=== PATIENT | female | born 1940 | race African-American/Black ===

== ENCOUNTER → 2016-09-22 | Outpatient (CLI) | payer MEDICARE, MEDICAID ==
[~2016-09-22] MED LIST: AMLODIPINE BESY10 MG ORAL; ASPIRIN325 MG PO; ATORVASTATIN CA80 MG PO; BYSTOLIC 10MG10 MG ORAL; CHLORTHALIDONE25 MG ORAL; DIOVAN160 MG PO; DIOVAN320 MG ORAL; KLONOPIN1 MG PO; LIDODERM700 M1 TP; LIPITOR80 MG ORAL; LISINOPRIL20 MG ORAL; METOPROLOL TAR100 MG ORAL; NEURONTIN300 MG PO; NITROQUICK0.4 MG SL; NORVASC5 MG PO; PERCOCET 10-321 EAC1 PO; TRAZODONE HCL100 MG ORAL; VICODIN ES 7.51 EACH ORAL; ZANTAC150 MG PO
--- NOTE | 2016-09-27 08:04 | Diagnostic Imaging Report ---
Indication: MASS Technique: Craniocaudal, mediolateral oblique, straight mediolateral views of the left breast. Focused ultrasound left breast Comparison: 03/19/2016, 03/03/2016, 12/13/2013 Findings: The posterior left breast asymmetry described on prior mammographic images at about 5:00 appears similar on the craniocaudal view, less conspicuous on the oblique view. Focused ultrasound of the left breast again demonstrates a lobulated lesion measuring approximately 5 cm long axis dimension, and corresponding in size and appearance to the prior study. Immediately adjacent to it is a 3 mm cyst which is not clearly evident previously but appears cystic, does not show any mammographic correlate. Impression: Left breast lesion described previously appears similar on mammographic imaging. Overall appears similar on sonographic imaging as well, although there is a small benign-appearing cyst next to it which was not apparent previously. Findings are still deemed probably benign, and short interval six-month mammography and sonography is recommended. At that time, patient will be due for bilateral screening mammography as well BI-RADS category 3-probably benign
== END | disposition home or self-care (01) ==
LOC: MAMMO 08:43
DX: R92.8 Other abnormal and inconclusive findings on diagnostic imaging of breast (principal); N63 Unspecified lump in breast

== ENCOUNTER 2017-05-10 03:25 | Emergency (ER) | payer OTHER, MEDICARE, MEDICAID ==
[~2017-05-10] VITALS: Ht 154.9 cm; Wt 79.4 kg
[2017-05-10 03:38] VITALS: BP 136/77
[2017-05-10] MEDS ORDERED: CRESTOR20 MG ORAL (03:45)
[2017-05-10] MEDS ORDERED: TRAMADOL HCL50 MG ORAL (03:45)
[2017-05-10] MEDS ORDERED: Sodium Chloride 500ML 500 ML IV ONE (03:51)
--- NOTE | 2017-05-10 03:53 | Emergency Room Report ---
History of Present Illness General Chief Complaint: Constipation Source: Patient Present Illness HPI Patient presents with right flank and right back pain Patient reports that she has been constipated She was seen by her physician on Tuesday She had taken some antibiotics for possible bladder infection Goes medications were started on her own Denies any dysuria however Denies any chest pain or shortness of breath Patient again reports sensation of constipation Denies any vomiting However as the pain persisted in the right lower back and flank area and some lower abdominal region she presents for further eval Allergies: Coded Allergies: No Known Allergies (Verified Allergy, Mild, 10/06/10) Patient History Past Medical History: see triage record Pertinent Family History: none Reviewed Nursing Documentation: PMH: Agreed, PSxH: Agreed Nursing Documentation-PMH Past Medical History: No History, Except For Hx Cardiac Problems: Yes - angina, palpitations Hx Hypertension: Yes Hx Asthma: No Hx COPD: No Hx Cancer: No Hx Gastrointestinal Problems: No Hx Neurological Problems: No Hx Headaches: Yes Review of Systems All Other Systems: negative except mentioned in HPI Physical Exam Vital Signs Date Time Temp Pulse Resp B/P (MAP) Pulse Ox O2 Delivery O2 Flow Rate FiO2 05/10/17 03:29 98.1 65 19 136/77 97 Room Air Sp02 EP Interpretation: reviewed, normal General Appearance: well appearing, no apparent distress Head: normocephalic, atraumatic Eyes: bilateral eye PERRL, bilateral eye EOMI ENT: hearing grossly normal, normal pharynx, TMs + canals normal, uvula midline Neck: full range of motion, supple, no meningismus, no bony tend Respiratory: lungs clear, normal breath sounds, no rhonchi, no respiratory distress, no retraction, no accessory muscle use Cardiovascular #1: normal peripheral pulses, regular rate, rhythm, no edema, no gallop, no JVD, no murmur Gastrointestinal: normal bowel sounds, non tender, soft, no mass, no organomegaly, non-distended, no guarding, no hernia, no pulsatile mass, no rebound Genitourinary: no CVA tenderness Musculoskeletal: other - Patient has a cane, does have palpation discomfort on the right posterior superior iliac crest Neurologic: oriented x3, responsive, 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, motor strength/ tone normal, sensory intact Psychiatric: mood/affect normal Skin: normal color, no rash, warm/dry, palpation normal Lymphatic: normal inspection, no adenopathy Medical Decision Making Diagnostic Impression: Primary Impression: Abdominal pain Additional Impression: Ovarian cyst ER Course With the history exam and presentation, multiple differentials considered, including but not limited to appendicitis, gastritis, cholecystitis, diverticulitis Patient's CAT scan imaging does reveal a right-sided adnexal mass likely ovarian They report that is larger than previous Patient's primary physician is notified about the finding this will require close outpatient followup Other blood work and urine are otherwise appropriate patient has done better at this time stable for close outpatient followup Labs Test 05/10/17 04:00 05/10/17 04:42 White Blood Count 5.5 K/UL (4.8-10.8) Red Blood Count 3.76 M/UL (4.20-5.40) Hemoglobin 13.3 G/DL (12.0-16.0) Hematocrit 35.2 % (37.0-47.0) Mean Corpuscular Volume 94 FL (80-99) Mean Corpuscular Hemoglobin 35.4 PG (27.0-31.0) Mean Corpuscular Hemoglobin Concent 37.8 G/DL (32.0-36.0) Red Cell Distribution Width 13.4 % (11.6-14.8) Platelet Count 267 K/UL (150-450) Mean Platelet Volume 7.8 FL (6.5-10.1) Neutrophils (%) (Auto) 48.4 % (45.0-75.0) Lymphocytes (%) (Auto) 36.2 % (20.0-45.0) Monocytes (%) (Auto) 9.4 % (1.0-10.0) Eosinophils (%) (Auto) 4.3 % (0.0-3.0) Basophils (%) (Auto) 1.7 % (0.0-2.0) Sodium Level 141 MMOL/L (136-145) Potassium Level 3.9 MMOL/L (3.5-5.1) Chloride Level 108 MMOL/L (98-107) Carbon Dioxide Level 25 MMOL/L (21-32) Anion Gap 8 mmol/L (5-15) Blood Urea Nitrogen 11 mg/dL (7-18) Creatinine 1.0 MG/DL (0.55-1.30) Estimat Glomerular Filtration Rate mL/min (>60) Glucose Level 110 MG/DL (74-106) Calcium Level 9.1 MG/DL (8.5-10.1) Total Bilirubin 0.9 MG/DL (0.2-1.0) Aspartate Amino Transf (AST/SGOT) 21 U/L (15-37) Alanine Aminotransferase (ALT/SGPT) 16 U/L (12-78) Alkaline Phosphatase 52 U/L (46-116) Total Protein 7.5 G/DL (6.4-8.2) Albumin 3.7 G/DL (3.4-5.0) Globulin 3.8 g/dL Albumin/Globulin Ratio 1.0 (1.0-2.7) Lipase 355 U/L (73-393) Urine Color Pale yellow Urine Appearance Clear Urine pH 7 (4.5-8.0) Urine Specific [place] 1.010 (1.005-1.035) Urine Protein Negative (NEGATIVE) Urine Glucose (UA) Negative (NEGATIVE) Urine Ketones Negative (NEGATIVE) Urine Occult Blood Negative (NEGATIVE) Urine Nitrite Negative (NEGATIVE) Urine Bilirubin Negative (NEGATIVE) Urine Urobilinogen Normal MG/DL (0.0-1.0) Urine Leukocyte Esterase 1+ (NEGATIVE) Urine RBC 0-2 /HPF (0 - 2) Urine WBC 2-4 /HPF (0 - 2) Urine Squamous Epithelial Cells Few /LPF (NONE/OCC) Urine Bacteria None /HPF (NONE) CT/MRI/US Diagnostic Results CT/MRI/US Diagnostic Results : Impression CT abdomen pelvisIMPRESSION: 1. No definite acute abnormality identified to explain unspecified abdominal pain, allowing for lack of contrast. 2. Oval, well-circumscribed right adnexal/ovarian cyst, measuring up to 5.5 cm, significantly larger than on the prior exams. 3. No additional significant interval change. INCIDENTAL: Colonic diverticulosis; cholelithiasis; evidence of prior granulomatous infection; small hiatal hernia; small right adrenal adenoma; stable mild right renal pyelocaliectasis; moderate atherosclerosis; status post hysterectomy and probable appendectomy; small right renal cyst. Last Vital Signs Date Time Temp Pulse Resp B/P (MAP) Pulse Ox O2 Delivery O2 Flow Rate FiO2 05/10/17 03:38 98.1 65 19 136/77 97 Room Air Status: improved Disposition: HOME, SELF-CARE Condition: Improved Scripts Acetaminophen (Tylenol) 325 Mg Tablet 650 MG ORAL Q8HR Y for Prn Pain/Headache/Temp > 101, #20 TAB 0 Refills Prov: ANDREY LAY D.O. 05/10/17 Docusate Sodium* (COLACE*) 100 Mg Capsule 100 MG ORAL THREE TIMES A DAY for 10 Days, CAP Prov: ANDREY LAY D.O. 05/10/17 Referrals: JANEL WALDRON (PCP) Additional Instructions: Patient is provided with the discharge instructions notified to follow up with primary doctor in the next 2-3 days otherwise return to the er with any worsening symptoms. Please note that this report is being documented using [employer] technology. This can lead to erroneous entry secondary to incorrect interpretation by the dictating instrument. ANDREY LAY D.O. May 10, 2017 03:53
[2017-05-10] MEDS ORDERED: Morphine Sulfate 4mg/ml Inj IVP ONE (04:00)
[2017-05-10 04:28] LABS: BASOPHILS % (AUTO) 1.7 % (0.0-2.0); EOSINOPHILS % (AUTO) 4.3 % (0.0-3.0); LYMPHOCYTES % (AUTO) 36.2 % (20.0-45.0); MEAN CORPUSCULAR HEMOGLOBIN 35.4 PG (27.0-31.0); MEAN CORPUSCULAR HGB CONC 37.8 G/DL (32.0-36.0); MEAN CORPUSCULAR VOLUME 94 FL (80-99); MEAN PLATELET VOLUME 7.8 FL (6.5-10.1); MONOCYTES % (AUTO) 9.4 % (1.0-10.0); NEUTROPHILS % (AUTO) 48.4 % (45.0-75.0); PLATELET COUNT 267 K/UL (150-450); RED BLOOD COUNT 3.76 M/UL (4.20-5.40); RED CELL DISTRIBUTION WIDTH 13.4 % (11.6-14.8); WHITE BLOOD COUNT 5.5 K/UL (4.8-10.8)
[2017-05-10 04:35] LABS: ANION GAP 8 mmol/L (5-15); CALCIUM 9.1 MG/DL (8.5-10.1); CARBON DIOXIDE 25 MMOL/L (21-32); CHLORIDE 108 MMOL/L (98-107); POTASSIUM 3.9 MMOL/L (3.5-5.1); SODIUM 141 MMOL/L (136-145)
[2017-05-10 04:38] LABS: ALANINE AMINOTRANSFERASE 16 U/L (12-78); ASPARTATE AMINO TRANSFERASE 21 U/L (15-37); LIPASE 355 U/L (73-393); TOTAL PROTEIN 7.5 G/DL (6.4-8.2)
[2017-05-10 05:01] LABS: APPEARANCE,URINE CLEAR; KETONES,URINE NEGATIVE (NEGATIVE); LEUKOCYTE ESTERASE ,URINE 1+ (NEGATIVE); NITRITE,URINE NEGATIVE (NEGATIVE); PH,URINE 7 (4.5-8.0); PROTEIN,URINE NEGATIVE (NEGATIVE); UROBILINOGEN,URINE NORMAL MG/DL (0.0-1.0)
[2017-05-10 05:20] LABS: RBC,URINE 0-2 /HPF (0 - 2); SQUAMOUS EPITHELIAL CELL,UR FEW /LPF (NONE/OCC)
[2017-05-10] MEDS ORDERED: TYLENOL325 MG ORAL (05:28)
[2017-05-10] MEDS ORDERED: COLACE100 MG ORAL (05:28)
[2017-05-10 05:38] VITALS: BP 139/79
[2017-05-10 06:13] VITALS: BP 139/81
--- NOTE | 2017-05-10 09:06 | Diagnostic Imaging Report ---
Indication: Abdominal pain Technique: Continuous helical transaxial imaging of the abdomen and pelvis was obtained from the lung bases to the pubic symphysis. No intravenous contrast was administered. Coronal 2-D reformats were also obtained. Automatic Exposure Control was utilized. Total Dose length Product (DLP): [address] Dose Index Volume (CTDIvol): 0.15, 17.93 mGy Comparison: none Findings: The lung bases are essentially clear. There is a small hiatal hernia. Calcified granulomata noted within the liver and spleen. Gallstones are present. Arterial vascular calcifications are present. Diverticula noted throughout the colon without definite evidence of diverticulitis. Small multiple hernia is present containing fat. There is a right-sided cystic focus only ovarian measuring 5 cm. This is larger compared to prior study. There is a small right adrenal low-density lesion consistent with an adenoma. Probable appendectomy noted. Uterus is absent. There is a small right renal cyst. Impression: No acute findings appreciated. 5 cm right adnexal cyst probably ovarian in nature. This has enlarged slightly since the last exam. Multiple other chronic findings as described above. [facility] has communicated the preliminary results to the Emergency Department. Their findings are largely concordant with this report. The CT scanner at [facility] is accredited by the [employer] and the scans are performed using dose optimization techniques as appropriate to a performed exam including Automatic Exposure control.
== END 2017-05-10 06:13 | disposition home or self-care (01) ==
LOC: EMR 03:45
DX: R10.9 Unspecified abdominal pain (principal); K59.00 Constipation, unspecified; I10 Essential (primary) hypertension; N83.201 Unspecified ovarian cyst, right side
CPT/HCPCS: 36415; 74176; 80053; 81003; 83690; 85025; 96361; 96374; 96375; 99284; J2270; J2405; J7040

== ENCOUNTER 2017-07-05 04:56 | Emergency (ER) | payer OTHER, MEDICAID ==
[~2017-07-05] VITALS: Ht 154.9 cm; Wt 79.4 kg
[~2017-07-05 04:56] MED LIST changes: +COLACE100 MG ORAL; +CRESTOR20 MG ORAL; +TRAMADOL HCL50 MG ORAL; +TYLENOL325 MG ORAL
[2017-07-05] MEDS ORDERED: NORVASC2.5 MG ORAL (05:15)
[2017-07-05] MEDS ORDERED: LOPRESSOR HCT1 EAC3 ORAL (05:15)
[2017-07-05] MEDS ORDERED: CIPROFLOXACIN750 MG ORAL (05:15)
--- NOTE | 2017-07-05 05:41 | Emergency Room Report ---
History of Present Illness General Chief Complaint: Lower Extremity Injury Source: Patient Present Illness HPI Patient presents with complaints of right-sided for pain Patient reports tripping fall about 3 days ago Pain is localized to the lateral leg/foot pain is worse with walking As the swelling persisted and the pain persisted patient was concerned and comes to the ER denies any cuts or laceration denies any pain to the knee Pain is 4/10 Allergies: Coded Allergies: No Known Allergies (Verified Allergy, Mild, 10/06/10) Patient History Past Medical History: see triage record Pertinent Family History: none Last Menstrual Period: na Reviewed Nursing Documentation: PMH: Agreed, PSxH: Agreed Nursing Documentation-PMH Hx Cardiac Problems: Yes - angina, palpitations Hx Hypertension: Yes Hx Asthma: No Hx COPD: No Hx Cancer: No Hx Gastrointestinal Problems: No Hx Neurological Problems: No Hx Headaches: Yes Review of Systems All Other Systems: negative except mentioned in HPI Physical Exam Vital Signs Date Time Temp Pulse Resp B/P (MAP) Pulse Ox O2 Delivery O2 Flow Rate FiO2 07/05/17 04:58 98.4 96 18 162/88 97 Room Air Sp02 EP Interpretation: reviewed, normal General Appearance: well appearing, no apparent distress Head: normocephalic, atraumatic Eyes: bilateral eye PERRL, bilateral eye EOMI ENT: normal pharynx, no angioedema Neck: full range of motion, supple Respiratory: lungs clear, normal breath sounds Cardiovascular #1: regular rate, rhythm Gastrointestinal: non tender Musculoskeletal: swelling - To the right foot Neurologic: alert, oriented x3 Skin: other - as above Lymphatic: no adenopathy Procedures Splinting Splinting : Consent: Verbal Location: right foot Pre-Made Type: Hand-Made Type: plaster Splint: poserior short Pre-Proc Neuro Vasc Exam: normal Post-Proc Neuro Vasc Exam: normal Patient Tolerated: Well Complications: None Medical Decision Making Diagnostic Impression: Primary Impression: foot fracture ER Course X-ray region reveals fifth metatarsal fracture Patient had a splint applied Referral to orthopedics as initiated patient will have discussion with primary physician as well for further outpatient care Other X-Ray Diagnostic Results Other X-Ray Diagnostic Results #1: X-Ray ordered: right foot # of Views/Limited Vs Complete: 3 View Indication: Pain EP Interpretation: Yes Interpretation: no soft tissue swelling, other - Fracture of the proximal fifth metatarsal, no other foreign body Impression: Other - acute fracture fifth metatarsal Electronically Signed by: Ghazala Lay DO Other X-Ray Diagnostic Results #2: X-Ray ordered: right ankle # of Views/Limited Vs Complete: 3 View Indication: Pain EP Interpretation: Yes Interpretation: no dislocation, no soft tissue swelling, other - Acute fracture fifth metatarsal better seen on the foot x-rays Impression: Other - acute fracture,5th metatarsal Electronically Signed by: Ghazala Lay DO Last Vital Signs Date Time Temp Pulse Resp B/P (MAP) Pulse Ox O2 Delivery O2 Flow Rate FiO2 07/05/17 04:58 98.4 96 18 162/88 97 Room Air Status: improved Disposition: HOME, SELF-CARE Condition: Improved Referrals: JANEL WALDRON (PCP) CAROL CORTEZ Patient Instructions: Metatarsal Fracture Additional Instructions: Patient is provided with the discharge instructions notified to follow up with primary doctor in the next 2-3 days otherwise return to the er with any worsening symptoms. Please note that this report is being documented using [employer] technology. This can lead to erroneous entry secondary to incorrect interpretation by the dictating instrument. GHAZALA LAY D.O. Jul 05, 2017 05:41
[2017-07-05 05:49] VITALS: BP 162/88
--- NOTE | 2017-07-05 12:25 | Diagnostic Imaging Report ---
Indication: Pain right ankle Comparison: None Findings: 3 views of the right ankle obtained. There is an acute fracture of the base of the fifth metatarsal. Soft tissue swelling noted in the hindfoot and ankle. The bones appear osteopenic. Ankle mortise appears normal. IMPRESSION: Acute fifth metatarsal base fracture
--- NOTE | 2017-07-05 12:26 | Diagnostic Imaging Report ---
Indication: Pain Comparison: None Findings: 3 views of the right foot were obtained. There is acute fracture at the base of the fifth metatarsal. Bones are osteopenic. Soft tissue swelling is noted. Plantar calcaneal spur formation noted. IMPRESSION: Acute fracture base of the fifth metatarsal
== END 2017-07-05 05:49 | disposition home or self-care (01) ==
LOC: EMR 05:15
DX: S92.351A Displaced fracture of fifth metatarsal bone, right foot, initial encounter for closed fracture (principal); I10 Essential (primary) hypertension; W18.30XA Fall on same level, unspecified, initial encounter; Y92.9 Unspecified place or not applicable
CPT/HCPCS: 29515; 99284

== ENCOUNTER 2018-08-05 17:27 | Inpatient (IN) | payer MEDICARE, OTHER ==
[~2018-08-05] VITALS: Ht 154.9 cm; Wt 80.8 kg
[~2018-08-05 17:27] MED LIST changes: +CIPROFLOXACIN750 MG ORAL; +LOPRESSOR HCT1 EAC3 ORAL; +NORVASC2.5 MG ORAL
--- NOTE | 2018-08-05 17:47 | NUR ---
ED Nurse Note: Pt came into the ER w/ complaints of SOB x 3 weeks. Pt is complaining of chest pain 4/10 non radiating while she coughs. A + O x4. Ambulatory. Pt noted to have bilateral pitting edema + 1 on bilateral lower legs. Pt has SOB in between talking. Pt noted to have wheezing.
[2018-08-05 17:49] VITALS: BP 152/69
--- NOTE | 2018-08-05 17:59 | Emergency Room Report ---
History of Present Illness General Chief Complaint: Dyspnea/Respdistress Source: Patient Present Illness HPI Patient presents with dyspnea on exertion. This started just before coming in. Apparently she was walking back from the bathroom and her nephew who her with shortness of breath. She denies chest pain. She's had a scratchy throat for a few days and 2 days ago was having a cough that didn't produce any phlegm. She also is complaining about swelling in her legs without any pain in her calfs. She she's felt chills but didn't document any fevers. She denies any nausea vomiting diarrhea dysuria. She's had some loose stool with brown stool. She states she feels her heart is pounding out of her chest. She complains of some constipation. She denies anxiety. She claims to have congestive failure in the past. She is told in the past that her heart was large and then normal size. Allergies: Coded Allergies: No Known Allergies (Verified Allergy, Mild, 10/06/10) Patient History Past Medical History: see triage record Social History: Denies: smoking Social History Narrative Born in [place] Reviewed Nursing Documentation: PMH: Agreed; PSxH: Agreed Nursing Documentation-PMH Past Medical History: No History, Except For Hx Cardiac Problems: Yes - angina, palpitations Hx Hypertension: Yes Hx Asthma: No Hx COPD: No Hx Cancer: No Hx Gastrointestinal Problems: No Hx Neurological Problems: No Hx Headaches: Yes Review of Systems All Other Systems: negative except mentioned in HPI Physical Exam Vital Signs Date Time Temp Pulse Resp B/P (MAP) Pulse Ox O2 Delivery O2 Flow Rate FiO2 08/05/18 17:43 97.5 108 16 152/69 96 Room Air 08/05/18 17:49 97 Sp02 EP Interpretation: reviewed, normal General Appearance: well appearing, no apparent distress, GCS 15 Head: normocephalic Eyes: bilateral eye normal inspection, bilateral eye PERRL, bilateral eye EOMI ENT: moist mucus membranes Neck: supple Respiratory: lungs clear, normal breath sounds Cardiovascular #1: tachycardia, edema - 1+ pitting bilaterally Cardiovascular #2: 2+ radial (R) Gastrointestinal: normal inspection, normal bowel sounds, non tender, no mass, non-distended Musculoskeletal: back normal, gait/station normal, normal range of motion, no calf tenderness, Aspen's Sign negative Neurologic: alert, oriented x3, grossly normal Psychiatric: mood/affect normal Skin: normal inspection, warm/dry Procedures Critical Care Time Critical Care Time Total Critical Care Time: 45 min bedside evaluation and treatment excludes procedures (EKG). Reason for critical care: NSTEMI with tachycardia, heart failure Possible complications: hypotension, hypertension, AL, shock, arrhythmias, metabolic acidosis, end organ damage, respiratory failure. Interventions: Lasix, nitroglycerin paste, metoprolol, Lovenox, aspirin, repeat evaluations morphine Course: Patient presented with dyspnea and evidence of tachycardia and possible congestive heart failure. EKG without injury. Nitroglycerin paste and Lasix given. Positive troponin. Aspirin, metoprolol given. Patient diuresing. Epigastric pain which may be cardiac equivalent. Morphine administered. Improvement in pain. Discussed with primary physician who requests CT angiogram to exclude pulmonary embolus. Lovenox administered. CT angiogram no pulmonary embolus. Morphine repeated. Vital signs improved and patient is pain -free. Admitted to stepdown unit. Consultations: nursing staff, EMS admitting physician, Performed by: Dr. Torres Tolerated well condition = critical but improved Medical Decision Making Diagnostic Impression: Primary Impression: NSTEMI (non-ST elevated myocardial infarction) Additional Impressions: CHF (congestive heart failure) Qualified Codes: I50.9 - Heart failure, unspecified Bilateral pleural effusion ER Course Patient presents with dyspnea on exertion. Differential includes acute myocardial infarction, congestive heart failure, pulmonary embolus, amongst others. The patient will be evaluated with EKG, chest x-ray and labs. The patient will be treated with nitroglycerin paste. Lasix also given. EKG with sinus tachycardia and PVCs. There is an episode of block. It might be secondary Mobitz 2 versus effusion beats it's not picked up. No acute injury. She is a left bundle-branch block and left axis deviation. Called with + troponin. Aspirin, metoprolol given. Nitrates already given. Improved HR. C/O "heartburn" Morphine given. Pain /10. EKG repeat = NSR 85, non-specific IV conduction delay - looks LBBB, not stemi. LAE. Dr. Vidales requests CTA. Lovenox administered subcutaneously. CTA done. No pulmonary embolus. Patient pain-free. Admit stepdown unit. Discussed with Dr. Vidales. Lovenox ordered. Pain free. Dr. Bianchi contacted for consultation. Laboratory Tests Test 08/05/18 18:00 08/05/18 19:00 White Blood Count 4.4 K/UL (4.8-10.8) L Red Blood Count 4.16 M/UL (4.20-5.40) L Hemoglobin 13.2 G/DL (12.0-16.0) Hematocrit 38.6 % (37.0-47.0) Mean Corpuscular Volume 93 FL (80-99) Mean Corpuscular Hemoglobin 31.6 PG (27.0-31.0) H Mean Corpuscular Hemoglobin Concent 34.1 G/DL (32.0-36.0) Red Cell Distribution Width 13.1 % (11.6-14.8) Platelet Count 190 K/UL (150-450) Mean Platelet Volume 9.4 FL (6.5-10.1) Neutrophils (%) (Auto) 51.3 % (45.0-75.0) Lymphocytes (%) (Auto) 34.1 % (20.0-45.0) Monocytes (%) (Auto) 12.1 % (1.0-10.0) H Eosinophils (%) (Auto) 0.2 % (0.0-3.0) Basophils (%) (Auto) 2.3 % (0.0-2.0) H Prothrombin Time 12.0 SEC (9.30-11.50) H Prothrombin Time INR 1.1 (0.9-1.1) PTT 26 SEC (23-33) Sodium Level 145 MMOL/L (136-145) Potassium Level 3.2 MMOL/L (3.5-5.1) L Chloride Level 106 MMOL/L (98-107) Carbon Dioxide Level 26 MMOL/L (21-32) Anion Gap 13 mmol/L (5-15) Blood Urea Nitrogen 17 mg/dL (7-18) Creatinine 1.2 MG/DL (0.55-1.30) Estimate Glomerular Filtration Rate mL/min (>60) Glucose Level 119 MG/DL (74-106) H Calcium Level 9.0 MG/DL (8.5-10.1) Total Bilirubin 3.4 MG/DL (0.2-1.0) H Direct Bilirubin 0.5 MG/DL (0.0-0.3) H Aspartate Amino Transferase (AST) 33 U/L (15-37) Alanine Aminotransferase (ALT) 34 U/L (12-78) Alkaline Phosphatase 55 U/L (46-116) Total Creatine Kinase 174 U/L (26-308) Troponin I 0.723 ng/mL (0.000-0.056) Pro-B-Type Natriuretic Peptide 8023 pg/mL (0-125) H Total Protein 6.9 G/DL (6.4-8.2) Albumin 3.6 G/DL (3.4-5.0) Globulin 3.3 g/dL Albumin/Globulin Ratio 1.1 (1.0-2.7) Urine Color Pale yellow Urine Appearance Slightly cloudy Urine pH 6 (4.5-8.0) Urine Specific [place] 1.010 (1.005-1.035) Urine Protein 2+ (NEGATIVE) H Urine Glucose (UA) Negative (NEGATIVE) Urine Ketones 1+ (NEGATIVE) H Urine Blood Negative (NEGATIVE) Urine Nitrite Negative (NEGATIVE) Urine Bilirubin Negative (NEGATIVE) Urine Urobilinogen Normal MG/DL (0.0-1.0) Urine Leukocyte Esterase Negative (NEGATIVE) Urine RBC 0 /HPF (0 - 2) Urine WBC 0-2 /HPF (0 - 2) Urine Squamous Epithelial Cells Many /LPF (NONE/OCC) H Urine Bacteria Few /HPF (NONE) Urine Mucus Moderate /LPF (NONE/OCC) H EKG Diagnostic Results Rate: tachycardiac Rhythm: NSR ST Segments: no acute changes - See above reading Rhythm Strip Diag. Results EP Interpretation: yes Rhythm: NSR, other - PVC and possible block rate 106 Chest X-Ray Diagnostic Results Chest X-Ray Diagnostic Results : Chest X-Ray Ordered: Yes # of Views/Limited/Complete: 1 View Indication: Shortness of Breath EP Interpretation: Yes Interpretation: no consolidation, no effusion, no pneumothorax Impression: No acute disease Electronically Signed by: Electronically signed by Mustapha Torres MD CT/MRI/US Diagnostic Results CT/MRI/US Diagnostic Results : Imaging Test Ordered: CT angiogram chest Impression No pulmonary emboli. Bilateral pleural effusions Last Vital Signs Date Time Temp Pulse Resp B/P (MAP) Pulse Ox O2 Delivery O2 Flow Rate FiO2 08/06/18 00:00 98.0 20 138/78 (98) 100 08/06/18 00:00 Room Air 2/17/19 00:00 79 08/05/18 17:49 97 Status: improved Disposition: ADMITTED INPATIENT Condition: Serious Mustapha Torres MD Aug 05, 2018 17:59
[2018-08-05] MEDS ORDERED: Nitroglycerin 2% oint pkt TOPIC ONE (18:00)
--- NOTE | 2018-08-05 18:12 | NUR ---
ED Nurse Note: Xray at the bedside.
[2018-08-05 18:22] LABS: BASOPHILS % (AUTO) 2.3 % (0.0-2.0); EOSINOPHILS % (AUTO) 0.2 % (0.0-3.0); HEMATOCRIT 38.6 % (37.0-47.0); HEMOGLOBIN 13.2 G/DL (12.0-16.0); LYMPHOCYTES % (AUTO) 34.1 % (20.0-45.0); MEAN CORPUSCULAR VOLUME 93 FL (80-99); MONOCYTES % (AUTO) 12.1 % (1.0-10.0); NEUTROPHILS % (AUTO) 51.3 % (45.0-75.0); PLATELET COUNT 190 K/UL (150-450); RED BLOOD COUNT 4.16 M/UL (4.20-5.40); RED CELL DISTRIBUTION WIDTH 13.1 % (11.6-14.8); WHITE BLOOD COUNT 4.4 K/UL (4.8-10.8)
--- NOTE | 2018-08-05 18:26 | Diagnostic Imaging Report ---
EXAM: XR Chest, 1 View CLINICAL HISTORY: DYSPNEA TECHNIQUE: Frontal view of the chest. COMPARISON: 01/31/2016 FINDINGS: Limitations: Patient rotation. Lungs: Nonspecific density in the medial right lung base. Pleural space: Unremarkable. No pneumothorax. Heart: Enlarged cardiomediastinal silhouette. Mediastinum: See above. Bones/joints: No acute osseous abnormality. Vasculature: Tortuosity and/or ectasia of the thoracic aorta. Lymph nodes: Subcentimeter right hilar calcifications, likely calcified lymph nodes. Tubes, lines and devices: Telemetry leads overlie the patient. IMPRESSION: Nonspecific density in the medial right lung base may represent atelectasis, scar, or an infectious or inflammatory process.
[2018-08-05 18:32] LABS: INR 1.1 (0.9-1.1)
[2018-08-05 18:39] LABS: ANION GAP 13 mmol/L (5-15); BLOOD UREA NITROGEN 17 mg/dL (7-18); CARBON DIOXIDE 26 MMOL/L (21-32); CHLORIDE 106 MMOL/L (98-107); CREATININE 1.2 MG/DL (0.55-1.30); POTASSIUM 3.2 MMOL/L (3.5-5.1); SODIUM 145 MMOL/L (136-145)
[2018-08-05 18:51] LABS: ALANINE AMINOTRANSFERASE 34 U/L (12-78); ALBUMIN 3.6 G/DL (3.4-5.0); ALBUMIN/GLOBULIN RATIO 1.1 (1.0-2.7); ALKALINE PHOSPHATASE 55 U/L (46-116); ASPARTATE AMINO TRANSFERASE 33 U/L (15-37); BILIRUBIN,TOTAL 3.4 MG/DL (0.2-1.0); CREATINE KINASE 174 U/L (26-308)
[2018-08-05 18:55] LABS: BILIRUBIN,DIRECT 0.5 MG/DL (0.0-0.3)
--- NOTE | 2018-08-05 19:03 | NUR ---
HAND-OFF: Report given to VALDO Crow.
--- NOTE | 2018-08-05 19:04 | NUR ---
ED Nurse Note: Notified ERMD of Troponin level of 0.723.
[2018-08-05] MEDS ORDERED: Metoprolol 5mg/5ml Inj IVP SCH (19:15)
[2018-08-05 19:28] LABS: APPEARANCE,URINE SLIGHTLY CLOUDY; BILIRUBIN, URINE NEGATIVE (NEGATIVE); COLOR,URINE PALE YELLOW; GLUCOSE, URINE (UA) NEGATIVE (NEGATIVE); KETONES,URINE 1+ (NEGATIVE); LEUKOCYTE ESTERASE ,URINE NEGATIVE (NEGATIVE); NITRITE,URINE NEGATIVE (NEGATIVE); PH,URINE 6 (4.5-8.0); PROTEIN,URINE 2+ (NEGATIVE); UROBILINOGEN,URINE NORMAL MG/DL (0.0-1.0)
[2018-08-05 19:45] VITALS: BP 166/111
--- NOTE | 2018-08-05 21:00 | NUR ---
ER Nurse Note: Pt BP elevated, MD aware, meds given. Repeat BP at 122/82. Denies chest pain and shortness of breath. Will continue to monitor.
[2018-08-05] MEDS ORDERED: Morphine Sulfate 2mg/ml Inj(IV/IM USE ONLY) IVP ONE ×2 (21:30→22:15)
[2018-08-05 22:05] VITALS: BP 148/82
--- NOTE | 2018-08-05 22:07 | NUR ---
ER Nurse Note: Pt calm, cooperative, a&ox4, VSS, no signs of distress. Pt stated 6/10 chest pain, ERMD notifed and meds ordered. Pt tolerated well. Pt on bedrest, bedside commode present. All safety measures met; will continue to montior.
[2018-08-05] MEDS ORDERED: Isovue-370 150ml vial INJ PRN (22:30)
[2018-08-05] MEDS ORDERED: Enoxaparin 80mg Inj SUBQ SCH (23:15)
[2018-08-05] MEDS ORDERED: Enoxaparin 120 mg inj SUBQ SCH (23:15)
[2018-08-05 23:25] VITALS: BP 136/82
--- NOTE | 2018-08-05 23:25 | NUR ---
ER Nurse Note: Report given to Ascencion Page RN in SDU for continuity of care. Pt a&ox4, VSS, no signs of distress.
--- NOTE | 2018-08-05 23:30 | NUR ---
NURSE NOTES: Pt admitted from ER. Given report from VALDO Croona. Pt is awake and alert and forgetful. Applied Tele monitor. No c/o SOB and chest pain at this time. SaO2 100% with RA. IV site intact and no sign of infiltration noted. Unable to verify her home medication at this time because Pt didn't remember her home medication and didn't bring medication list. Pt has 76 dollar money but refused to save hospital safe. Explained benefit and risks. Checked her belongings. Pt has upper and lower denture. Given admission instruction. Placed fall precaution. Will continue to care plan.
[2018-08-06] VITALS: BP 138/78
--- NOTE | 2018-08-06 | NUR ---
NURSE NOTES: Dr. Bianchi visited and assessed Pt and He said he will give order. Notified to him her lab result and unable to verify her home medications at this time.
--- NOTE | 2018-08-06 00:01 | Diagnostic Imaging Report ---
EXAM: CT Angiography Chest With Intravenous Contrast CLINICAL HISTORY: Pulmonary embolus TECHNIQUE: Axial computed tomographic angiography images of the chest with intravenous contrast using pulmonary embolism protocol. CTDI is 0.17, 12. 62, 12.62, 12.62, 63.11, 28.38 mGy and DLP is 999 mGy-cm. One or more of the following dose reduction techniques were used: automated exposure control, adjustment of the mA and/or kV according to patient size, use of iterative reconstruction technique. MIP reconstructed images were created and reviewed. COMPARISON: No relevant prior studies available. FINDINGS: Artifacts: Motion. Pulmonary arteries: No central pulmonary embolus. Aorta: Atherosclerosis of the thoracic aorta. No thoracic aortic aneurysm. Lungs: Unremarkable. No mass. No consolidation. Pleural space: Small bilateral pleural effusions. No pneumothorax. Heart: Unremarkable. No cardiomegaly. No significant pericardial effusion. Bones/joints: Degenerative changes of the spine. No acute osseous abnormality. Soft tissues: Trace intravenous gas in the lower neck and anterior chest wall may be iatrogenic. Lymph nodes: Unremarkable. No enlarged lymph nodes. Liver: Punctate hepatic and splenic calcifications are compatible with the sequela prior granulomatous disease. Nodular hepatic contour. Gallbladder and bile ducts: Cholelithiasis. Adrenals: Nodular bilateral adrenal glands. IMPRESSION: 1. Small bilateral pleural effusions. 2. No central pulmonary embolus.
[2018-08-06] MEDS ORDERED: HydrALAZINE 25mg tab ORAL PRN (01:15)
--- NOTE | 2018-08-06 02:15 | Consultation ---
DATE OF CONSULTATION: 08/05/2018 CONSULTING PHYSICIAN: Mustapha Bianchi M.D. REQUESTING PHYSICIAN: Dany Vidales M.D. REASON FOR CONSULTATION: Elevated troponin level. HISTORY OF PRESENT ILLNESS: This is an 79-year-old female with history of hypertension, who presented to the hospital with shortness of breath on exertion and ankle swelling, some chest tightness as well was noted. She was noted to have these symptoms today by her nephew who brought her into the hospital. She has had a couple of days of scratchy throat, dry cough, and general malaise but has not had any other constitutional symptoms such as fevers, chills, nausea, vomiting, or diarrhea may be some loose stools noted however. She was seen in the emergency room. She was noted to have signs of congestive heart failure and an elevated troponin level prompting hospitalization. The patient was hospitalized here in 2016 and at that time had a myocardial perfusion scan that revealed less than 10% likelihood for flow-limiting coronary disease. She has not had any subsequent hospitalizations. PAST MEDICAL HISTORY: Hypertension. ALLERGIES: None. MEDICATIONS: The patient does not recall. SOCIAL HISTORY: Quit smoking over 30 years ago. No alcohol or substance abuse. FAMILY HISTORY: Noncontributory. REVIEW OF SYSTEMS: A 10-point review of systems performed, all systems otherwise negative. PHYSICAL EXAMINATION: GENERAL: Moderate respiratory distress. She is well developed, well nourished, appearing younger than her age. Afebrile. VITAL SIGNS: Blood pressure 152/69, pulse 108, respiratory rate 16, and room air oxygen saturation 96%. HEENT: Conjunctivae are pink. Oropharynx clear. Jugular venous pressure is slightly elevated. LUNGS: Few rales. CARDIAC: Regular rhythm and rate. Normal S1, paradoxically split S2. A 1/6 systolic murmur at apex. ABDOMEN: Soft and nontender. EXTREMITIES: 1+ edema. LABORATORY DATA: EKG, sinus tachycardia, occasional PVC, intraventricular conduction delay versus incomplete left bundle-branch block. Sodium 145, potassium 3.2, bicarb 26, BUN 17, creatinine 1.2, and glucose 119. Pro-natriuretic peptide 8023. Troponin 0.723. White count 4.4 and hemoglobin 13.2. Chest x-ray, mild pulmonary venous congestion. IMPRESSION: 1. Acute diastolic congestive heart failure. 2. Acute ves-N[place]-hdtjrbfyr myocardial infarction. 3. Hypertensive heart disease. 4. Hypokalemia. PLAN: 1. Cardiac monitoring, serial troponins, IV diuresis, beta-blockade, and angiotensin-converting enzyme inhibitor for blood pressure management. 2. Check lipid panel. 3. Full anticoagulation with Lovenox. 4. Topical nitrates. 5. Check magnesium level following potassium replacement. 6. Further diagnostic studies will follow depending on clinical course. Mustapha Bianchi M.D. DR: ALVARO JOB#: [id number] CC:
[2018-08-06 04:00] VITALS: BP 136/82
[2018-08-06] MEDS: Nitroglycerin 2% oint pkt TOPIC SCH ×3 (06:03→17:11)
--- NOTE | 2018-08-06 07:07 | NUR ---
HAND-OFF: Report given to VALDO Chavis. Pt is resting on the bed and no sign of acute distress noted.
--- NOTE | 2018-08-06 07:22 | NUR ---
NURSE NOTES: Received report from VALDO Cramer. Patient is resting in bed, in stable condition. No s/sx of SOB, breathing is even and unlabored. Denies any presence of pain or discomfort at this time. Bed is in lowest position, brakes engaged. Call light is kept within easy reach. Will continue to monitor patient.
[2018-08-06 08:00] VITALS: BP 145/87
[2018-08-06] MEDS: Metoprolol 25mg tab ORAL SCH ×2 (08:39→20:58)
[2018-08-06] MEDS: Aspirin Baby 81mg ORAL SCH (08:39)
[2018-08-06] MEDS: Enoxaparin 60mg Inj SUBQ SCH ×2 (08:41→20:59)
--- NOTE | 2018-08-06 10:20 | NUR ---
NURSE NOTES: Contacted and informed Dr. Vidales that patient wishes to be a FULL code status. Dr. Vidales agreed. Code status FULL code entered as ordered. Will continue to monitor patient.
[2018-08-06 10:33] LABS: BASOPHILS % (AUTO) 2.7 % (0.0-2.0); EOSINOPHILS % (AUTO) 2.9 % (0.0-3.0); HEMATOCRIT 35.9 % (37.0-47.0); HEMOGLOBIN 12.7 G/DL (12.0-16.0); LYMPHOCYTES % (AUTO) 32.6 % (20.0-45.0); MEAN CORPUSCULAR VOLUME 91 FL (80-99); MONOCYTES % (AUTO) 10.3 % (1.0-10.0); NEUTROPHILS % (AUTO) 51.5 % (45.0-75.0); PLATELET COUNT 178 K/UL (150-450); RED BLOOD COUNT 3.97 M/UL (4.20-5.40); RED CELL DISTRIBUTION WIDTH 13.1 % (11.6-14.8); WHITE BLOOD COUNT 4.1 K/UL (4.8-10.8)
[2018-08-06 11:01] LABS: ALANINE AMINOTRANSFERASE 33 U/L (12-78); ALBUMIN 3.3 G/DL (3.4-5.0); ALBUMIN/GLOBULIN RATIO 1.1 (1.0-2.7); ALKALINE PHOSPHATASE 51 U/L (46-116); ANION GAP 10 mmol/L (5-15); ASPARTATE AMINO TRANSFERASE 30 U/L (15-37); BILIRUBIN,TOTAL 2.7 MG/DL (0.2-1.0); BLOOD UREA NITROGEN 19 mg/dL (7-18); CALCIUM 8.4 MG/DL (8.5-10.1); CARBON DIOXIDE 27 MMOL/L (21-32); CHLORIDE 107 MMOL/L (98-107); CHOLESTEROL 181 MG/DL (< 200); CREATININE 1.2 MG/DL (0.55-1.30); HDL CHOLESTEROL 31 MG/DL (40-60); POTASSIUM 3.6 MMOL/L (3.5-5.1); SODIUM 144 MMOL/L (136-145); TRIGLYCERIDES 77 MG/DL (30-150)
[2018-08-06 11:15] LABS: BILIRUBIN,DIRECT 0.4 MG/DL (0.0-0.3)
[2018-08-06 12:00] VITALS: BP 135/75
--- NOTE | 2018-08-06 12:23 | NUR ---
NURSE NOTES: Contacted and informed Dr. Mccord who is covering for Dr. Bianchi today, that patient's new troponin level today is 0.640, a downward trend from troponin level of 0.723 from yesterday. Patient denies chest pain or shortness of breath at this time, blood pressure is 135/75. Dr. Mccord acknowledged and no new orders given at this time, and informed this nurse that Dr. Bianchi will be in later today. Noted. Will continue to monitor patient.
[2018-08-06 16:00] VITALS: BP 135/78
--- NOTE | 2018-08-06 18:11 | NUR ---
NURSE NOTES: Dr. Bianchi at nurse station, made aware of troponin level of 0.640 and that patient denies chest pain. Dr. Bianchi acknowledged and no new orders given at this time. Will continue to monitor patient.
--- NOTE | 2018-08-06 19:11 | NUR ---
HAND-OFF: Report given to VALDO Cramer.
--- NOTE | 2018-08-06 19:30 | NUR ---
NURSE NOTES: Received Pt is resting on the bed and no sign of acute distress noted. IV site intact and no sign of infiltration noted. No c/o SOB and denied chest pain at this time. Changed position. Placed fall precaution. Will continue to care plan.
[2018-08-06 20:00] VITALS: BP 126/80
--- NOTE | 2018-08-06 20:52 | History & Physical ---
History and Physical History & Physicial [id number] NSTEMI COPD HTN CHF VO hypoxema obesity Denise Dee DO Aug 06, 2018 20:52
[2018-08-06] MEDS ORDERED: Milk of Magnesia 30ml Ud ORAL PRN (21:30)
[2018-08-06] MEDS ORDERED: Enoxaparin 80mg Inj SUBQ SCH (23:00)
--- NOTE | 2018-08-06 23:00 | Progress Note ---
DATE: 08/06/2018 CARDIOLOGY PROGRESS NOTE SUBJECTIVE: The patient feels better. Less shortness of breath. No chest pain. OBJECTIVE: VITAL SIGNS: Blood pressure 135/72, heart rate 66, respiratory rate 20. She is afebrile. Monitored rhythm, sinus. LUNGS: Few rales. Jugular venous pressure elevated. HEART: Regular rhythm and rate. Normal S1, S2. ABDOMEN: Soft. EXTREMITIES: Trace edema. LABORATORY DATA: White count 4.1, hemoglobin 12.7. Sodium 144, potassium 3.6, bicarb 27, BUN 19, and creatinine 1.2. Troponin decreased from 0.723 to 0.640. LDL cholesterol 141, total cholesterol 181, and HDL 31. TSH normal. Natriuretic peptide yesterday 8000. IMPRESSION: 1. Knb-CG-jnlgypmvt myocardial infarction. 2. Acute on chronic diastolic congestive heart failure. 3. Hypertensive heart disease. 4. Dyslipidemia. PLAN: 1. Continue anti-platelet and anticoagulants. 2. Add statin drugs. 3. Continue diuresis and titration of anti-failure regimen. 4. 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 5. At this point, I would stabilize the patient further and consider coronary angiography. I am attempting to get her old records as she said she had a cardiac catheterization several years back. Mustapha Bianchi M.D. DR: JOSELUIS JOB#: [id number] CC:
--- NOTE | 2018-08-06 23:15 | History and Physical Report ---
DATE OF ADMISSION: 08/05/2018 REASON FOR ADMISSION: Chest pain, shortness of breath. HISTORY OF PRESENT ILLNESS: An elderly female who states about 3 weeks ago she had the first episode of chest pain. She has had a couple of episodes intermittently since then, that only last few minutes and then resolved, but last night the pain was severe. She is very dyspneic at rest with minimal exertion. She came into the emergency room for further evaluation. Per the ER record, she was complaining more of shortness of breath and a scratchy throat with cough without phlegm production. Her influenza was negative. She did also have lower extremity edema, was given Lasix with good diuresis and improvement of her edema. She denies any ill contacts, nausea, vomiting, fever, or chills. PAST MEDICAL HISTORY: Includes coronary artery disease, hypertension, obesity, and headaches. SOCIAL HISTORY: Negative for tobacco, alcohol, or drugs. MEDICATIONS: Pre-hospital and current hospital medications were reviewed, reconciled, and documented in the electronic medical record by dose, frequency, and route. FAMILY HISTORY: Noncontributory. REVIEW OF SYSTEMS: Positive for chest pain, shortness of breath, dyspnea on exertion, and lower extremity edema. Otherwise, all other review of systems were negative. ALLERGIES: She has no known drug allergies. PHYSICAL EXAMINATION: GENERAL: At the time of my exam, she is awake and alert. She is in no acute distress. VITAL SIGNS: She is afebrile, pulse 73, respirations 20, blood pressure 126/80, and 95% on room air. HEENT: Normocephalic and atraumatic. Oropharynx moist. Nasal mucous is moist. NECK: Supple. No lymphadenopathy. LUNGS: Decreased at the bases. crackles are noted. No wheezes present. HEART: Regular rate and rhythm without murmur. ABDOMEN: Soft, obese, and nontender. Positives bowel sounds. EXTREMITIES: With reduced lower extremity edema. NEUROLOGIC: No focal neurologic deficits. SKIN: No skin rashes or lesions are present. LABORATORY DATA: Her white count 4.1, hemoglobin 12.7, and platelets are 178. Her sodium is ____, potassium 3.6, chloride 7, bicarbonate 27, BUN 19, creatinine 1.2, glucose is 120, and magnesium is 1.4. Her initial troponin is 0.723, now declining at 0.640. Her LDL is elevated at 141, HDL is 31. Her urinalysis is negative for leukocyte esterase. Her chest x-ray, nonspecific density in the medial right lung may represent atelectasis, scar, inflammatory process. She subsequently did have a CT angio of the chest with small bilateral pleural effusions and no pulmonary embolism. ASSESSMENT: 1. Non-STEMI. 2. Hypertension. 3. She does have a history of smoking tobacco, quit 30 years ago. 4. History of chronic obstructive pulmonary disease. 5. Hypokalemia. 6. Hypomagnesemia. 7. Hypertension. 8. Diastolic congestive heart failure. PLAN: Plan for the patient following her troponins which are not downtrending, diuresis, beta-nathaniel, and ARI inhibitor as noted. We will need to initiate hypercholesterolemia therapy, Lovenox therapy at this time. Replace her lytes and the patient for cardiac catheterization and follow up with Cardiology. We will continue to monitor her closely in the telemetry unit. Monitor for bleeding as she is on anticoagulants. Denise Dee D.O. DR: JASPER JOB#: [id number] CC:
[2018-08-07] VITALS: BP 102/64
[2018-08-07 04:00] VITALS: BP 112/59
[2018-08-07] MEDS: Nitroglycerin 2% oint pkt TOPIC SCH ×3 (06:01→17:41)
--- NOTE | 2018-08-07 07:21 | NUR ---
HAND-OFF: Report given to VALDO Starr. Pt is resting on the bed and no sign of acute distress noted.
[2018-08-07 08:00] VITALS: BP 138/66
--- NOTE | 2018-08-07 08:15 | NUR ---
NURSE NOTES: received pt in the bed, awake, alert,oriented, vital signs stable, no co pain, no SOB, skin warm and dry to touch, intact, abdomen soft, tolerate diet well, bed in low position, call light within reach.
[2018-08-07] MEDS: Metoprolol 25mg tab ORAL SCH ×2 (09:00→20:57)
[2018-08-07 09:06] LABS: BASOPHILS % (AUTO) 1.3 % (0.0-2.0); EOSINOPHILS % (AUTO) 4.6 % (0.0-3.0); HEMATOCRIT 37.2 % (37.0-47.0); HEMOGLOBIN 12.7 G/DL (12.0-16.0); LYMPHOCYTES % (AUTO) 32.2 % (20.0-45.0); MEAN CORPUSCULAR VOLUME 93 FL (80-99); MONOCYTES % (AUTO) 9.8 % (1.0-10.0); NEUTROPHILS % (AUTO) 52.1 % (45.0-75.0); PLATELET COUNT 183 K/UL (150-450); RED CELL DISTRIBUTION WIDTH 13.7 % (11.6-14.8); WHITE BLOOD COUNT 4.8 K/UL (4.8-10.8)
[2018-08-07] MEDS: Docusate 100mg cap ORAL SCH (09:20)
[2018-08-07] MEDS: Aspirin Baby 81mg ORAL SCH (09:21)
[2018-08-07 09:23] LABS: ANION GAP 8 mmol/L (5-15); BLOOD UREA NITROGEN 23 mg/dL (7-18); CALCIUM 8.5 MG/DL (8.5-10.1); CARBON DIOXIDE 29 MMOL/L (21-32); CHLORIDE 105 MMOL/L (98-107); CREATININE 1.4 MG/DL (0.55-1.30); POTASSIUM 3.2 MMOL/L (3.5-5.1); SODIUM 142 MMOL/L (136-145)
[2018-08-07] MEDS: Enoxaparin 60mg Inj SUBQ SCH ×2 (09:25→21:00)
[2018-08-07 12:00] VITALS: BP 134/79
--- NOTE | 2018-08-07 13:13 | General Progress Note ---
Assessment/Plan Status: doing well Assessment/Plan 1. Qij-AR-yccwokfgf myocardial infarction. 2. Acute on chronic diastolic congestive heart failure. 3. Hypertensive heart disease. 4. Dyslipidemia. 5. Atherosclerosis of aorta no more chest pain or SOB troponin trending down disc w RN and Dr Bianchi he will arrange transfer for cath Subjective Constitutional: Reports: no symptoms Allergies: Coded Allergies: No Known Allergies (Verified Allergy, Mild, 10/06/10) Objective Last 24 Hour Vital Signs Date Time Temp Pulse Resp B/P (MAP) Pulse Ox O2 Delivery O2 Flow Rate FiO2 08/07/18 12:21 134/79 08/07/18 12:00 Room Air 08/07/18 12:00 97.2 68 20 134/79 (97) 97 08/07/18 09:20 138/66 08/07/18 09:00 39 138/66 08/07/18 08:00 Room Air 08/07/18 08:00 97.7 74 20 138/66 (90) 92 08/07/18 08:00 39 08/07/18 06:01 115/67 08/07/18 04:00 98.0 60 20 112/59 (76) 98 08/07/18 04:00 61 08/07/18 04:00 Room Air 08/07/18 00:00 60 08/07/18 00:00 98.0 62 20 102/64 (77) 96 08/07/18 00:00 Room Air 08/06/18 20:58 73 126/80 08/06/18 20:00 98.1 73 20 126/80 (95) 95 08/06/18 20:00 Room Air 08/06/18 20:00 68 08/06/18 17:11 135/72 08/06/18 16:00 66 08/06/18 16:00 Room Air 08/06/18 16:00 97.8 20 135/78 (97) 95 Intake and Output 08/06/18 08/07/18 19:00 07:00 Intake Total 800 ml 120 ml Balance 800 ml 120 ml Intake Oral 600 ml 120 ml IV Total 200 ml # Voids 3 3 Laboratory Tests 08/07/18 08:10: White Blood Count 4.8, Red Blood Count 4.00L, Hemoglobin 12.7, Hematocrit 37.2, Mean Corpuscular Volume 93, Mean Corpuscular Hemoglobin 31.9H, Mean Corpuscular Hemoglobin Concent 34.2, Red Cell Distribution Width 13.7, Platelet Count 183, Mean Platelet Volume 10.2H, Neutrophils (%) (Auto) 52.1, Lymphocytes (%) (Auto) 32.2, Monocytes (%) (Auto) 9.8, Eosinophils (%) (Auto) 4.6H, Basophils (%) (Auto ) 1.3, Sodium Level 142, Potassium Level 3.2L, Chloride Level 105, Carbon Dioxide Level 29, Anion Gap 8, Blood Urea Nitrogen 23H, Creatinine 1.4H, Estimat Glomerular Filtration Rate , Glucose Level 104, Calcium Level 8.5, Magnesium Level 1.7L, Troponin I 0.677H, Pro-B-Type Natriuretic Peptide 3250H Height (Feet): 5 Height (Inches): 1.00 Weight (Pounds): 175 General Appearance: no apparent distress Neck: supple Cardiovascular: normal rate Respiratory/Chest: lungs clear Dany Vidales MD Aug 07, 2018 13:13
--- NOTE | 2018-08-07 13:29 | NUR ---
RADIOLOGY DEPT CHEST X-RAY DONE.-P.DYE
--- NOTE | 2018-08-07 14:48 | NUR ---
NURSE NOTES: pt resting. no distress, no co pain, Mag 1.7, 2gm Magnesium given as ordered, continue monitoring.
--- NOTE | 2018-08-07 14:52 | Diagnostic Imaging Report ---
Indication: Cough Comparison: 08/05/2018 A single view chest radiograph was obtained. Findings: No definite infiltrate or pulmonary vascular congestion identified. The heart is enlarged. The aorta is mildly enlarged consistent with atherosclerotic vascular disease. The bones are osteopenic. Impression: No acute disease
[2018-08-07 16:00] VITALS: BP 132/81
--- NOTE | 2018-08-07 18:01 | NUR ---
NURSE NOTES: last night heart rate was down to 36, left massage to dr. Bianchi.
--- NOTE | 2018-08-07 19:12 | NUR ---
HAND-OFF: Report given to HASEEB LYLE, NO ANY DISTRESS NOTED.
--- NOTE | 2018-08-07 19:30 | NUR ---
NURSE NOTES: Received Pt is resting on the bed and no sign of acute distress noted. IV site intact and no sign of infiltration noted. Denied pain at this time. On Tele monitor with SR. Placed fall precaution. Will continue to care plan.
[2018-08-07 20:00] VITALS: BP 136/76
--- NOTE | 2018-08-07 22:00 | Progress Note ---
DATE: 08/07/2018 CARDIOLOGY PROGRESS NOTE SUBJECTIVE: The patient is still short of breath, but feels better with no chest pain. OBJECTIVE: VITAL SIGNS: Blood pressure 134/79, pulse 58, respirations 20, heart rate down to the 30s while sleeping. NECK: Supple. LUNGS: With few rales. CARDIAC: Regular rhythm and rate. Normal S1, S2 with a 1/6 systolic apical murmur. ABDOMEN: Soft. Trace edema. LABORATORY AND DIAGNOSTIC DATA: White count 4.8, hemoglobin 12.7. Potassium 3.2. Troponin 0.677. Pro-natriuretic peptide 3250. Chest x-ray today revealed no acute process. IMPRESSION: 1. Acute myocardial infarction. 2. Acute on chronic diastolic congestive heart failure. 3. Hypertensive heart disease. 4. Hypokalemia. 5. Sinus bradycardia on beta nathaniel therapy. PLAN: 1. Continue cardiovascular regimen. 2. Replace potassium. 3. Recheck magnesium. 4. Await transfer for cardiac catheterization. 5. Decrease beta nathaniel dosing. 6. May consider myocardial perfusion scan to risk stratify prior to transfer if no bed immediately available. Mustapha Bianchi M.D. DR: ROSA JOB#: [id number] CC: JANET
--- NOTE | 2018-08-07 22:40 | NUR ---
NURSE NOTES: Pt is sleeping on the bed and noted 5 beats of VT and V/S is stable. MD aware. Will continue to monitor any change of condition.
[2018-08-08] VITALS: BP 105/65
--- NOTE | 2018-08-08 02:22 | NUR ---
NURSE NOTES: Get call from Osmar who is [facility] staff. She said room is not available today. Awaiting the room. Will continue to monitor any change of condition.
[2018-08-08 04:00] VITALS: BP 120/65
[2018-08-08] MEDS: Nitroglycerin 2% oint pkt TOPIC SCH ×3 (05:54→17:27)
[2018-08-08 06:43] LABS: ANION GAP 9 mmol/L (5-15); BLOOD UREA NITROGEN 21 mg/dL (7-18); CARBON DIOXIDE 29 MMOL/L (21-32); CHLORIDE 106 MMOL/L (98-107); CREATININE 1.1 MG/DL (0.55-1.30); POTASSIUM 3.6 MMOL/L (3.5-5.1); SODIUM 143 MMOL/L (136-145)
--- NOTE | 2018-08-08 07:15 | NUR ---
HAND-OFF: Report given to VALDO Starr. Pt is resting on the bed and no sign fo acute distress noted.
[2018-08-08 08:00] VITALS: BP 134/94
--- NOTE | 2018-08-08 08:49 | NUR ---
NURSE NOTES: received pt in the bed, awake, alert, oriented, vital signs stable, no co pain, no SOB, skin warm and dry to touch, intact, abdomen soft, tolerate diet well, no co chest pain, bed in low position, call light within reach.
--- NOTE | 2018-08-08 09:20 | Pulmonology Progress Note ---
Assessment/Plan Assessment/Plan 1. Zup-DR-rxqznzvwp myocardial infarction. 2. Acute on chronic diastolic congestive heart failure. 3. Hypertensive heart disease. 4. Dyslipidemia. 5. Atherosclerosis of aorta 6. COPD Less SOB add Advair and prednisone for COPD ewa dodson RN and Dr Bianchi waiting for [facility] bed for cath Subjective Respiratory: Reports: dry cough, shortness of breath - less Cardiovascular: Denies: chest pain Allergies: Coded Allergies: No Known Allergies (Verified Allergy, Mild, 10/06/10) Objective Last 24 Hour Vital Signs Date Time Temp Pulse Resp B/P (MAP) Pulse Ox O2 Delivery O2 Flow Rate FiO2 08/08/18 08:00 98.2 77 20 134/94 (107) 92 08/08/18 08:00 72 08/08/18 08:00 Room Air 08/08/18 05:54 120/65 08/08/18 04:00 98.0 66 20 120/65 (83) 100 08/08/18 04:00 64 08/08/18 04:00 Room Air 08/08/18 00:00 98.6 63 20 105/65 (78) 100 08/08/18 00:00 57 08/08/18 00:00 Room Air 08/07/18 20:57 74 136/76 08/07/18 20:00 Room Air 08/07/18 20:00 83 08/07/18 20:00 98.5 74 20 136/76 (96) 100 08/07/18 17:41 132/81 08/07/18 16:00 Room Air 08/07/18 16:00 77 08/07/18 16:00 97.7 78 20 132/81 (98) 94 08/07/18 12:21 134/79 08/07/18 12:00 Room Air 08/07/18 12:00 68 08/07/18 12:00 97.2 68 20 134/79 (97) 97 08/07/18 09:20 138/66 Intake and Output 08/07/18 08/08/18 19:00 07:00 Intake Total 600 ml 120 ml Balance 600 ml 120 ml Intake Oral 600 ml 120 ml # Voids 3 3 # Bowel Movements 3 General Appearance: no acute distress HEENT: atraumatic Respiratory/Chest: lungs clear Cardiovascular: normal rate Laboratory Tests 08/08/18 03:50: Sodium Level 143, Potassium Level 3.6, Chloride Level 106, Carbon Dioxide Level 29, Anion Gap 9, Blood Urea Nitrogen 21H, Creatinine 1.1, Estimat Glomerular Filtration Rate , Glucose Level 94, Calcium Level 8.0L, Magnesium Level 1.9, Troponin I 0.467H, Pro-B-Type Natriuretic Peptide 2449H Current Medications Medications (Trade) Dose Ordered Sig/Oriana Route PRN Reason Start Time Stop Time Status Last Admin Dose Admin Acetaminophen (Tylenol) 650 mg Q4H PRN ORAL Mild Pain/Temp > 100.5 08/06/18 01:15 09/05/18 01:14 Aspirin (ASA) 81 mg DAILY ORAL 08/06/18 09:00 09/05/18 08:59 08/07/18 09:21 Benazepril HCl (Lotensin) 40 mg DAILY ORAL 08/06/18 09:00 09/05/18 08:59 08/07/18 09:20 Docusate Sodium (Colace) 100 mg DAILY ORAL 08/07/18 09:00 09/06/18 08:59 08/07/18 09:20 Enoxaparin Sodium (Lovenox) 60 mg Q12HR SUBQ 08/06/18 09:00 09/05/18 08:59 08/07/18 21:00 Furosemide (Lasix) 20 mg DAILY IV 08/08/18 09:00 09/07/18 08:59 Hydralazine HCl (Apresoline) 25 mg Q6HR PRN ORAL SBP above 150 08/06/18 01:15 09/05/18 01:14 Magnesium Hydroxide (Mom) 30 ml HSPRN PRN ORAL Constipation 08/06/18 21:30 09/05/18 21:29 08/07/18 17:41 Metoprolol Tartrate (Lopressor) 12.5 mg Q12HR ORAL 08/08/18 09:00 09/07/18 08:59 Nitroglycerin (Nitro-Bid) 1 inch TID@0600,1200,1800 TOPIC 08/06/18 06:00 09/05/18 05:59 08/08/18 05:54 Potassium Chloride (K-Dur) 20 meq BID ORAL 08/06/18 09:00 09/05/18 08:59 08/07/18 17:41 Pravastatin Sodium (Pravachol) 40 mg BEDTIME ORAL 08/06/18 21:00 09/05/18 20:59 08/07/18 20:57 Salmeterol Xinafoate/ Fluticasone (Advair 250/50 Diskus) 1 puffs BID INH 08/08/18 09:30 09/07/18 09:29 Dany Byrne MD Aug 08, 2018 09:20
[2018-08-08] MEDS: Advair 250/50 Inhaler - 14 dose INH SCH ×2 (09:24→19:05)
[2018-08-08] MEDS: Metoprolol Tartrate 12.5mg TAB ORAL SCH ×2 (09:28→21:20)
[2018-08-08] MEDS: Aspirin Baby 81mg ORAL SCH (09:29)
[2018-08-08] MEDS: Docusate 100mg cap ORAL SCH (09:29)
[2018-08-08] MEDS: Enoxaparin 60mg Inj SUBQ SCH ×2 (09:30→21:22)
[2018-08-08 12:00] VITALS: BP 121/76
--- NOTE | 2018-08-08 15:11 | NUR ---
NURSE NOTES: pt resting, no any distress noted, no co pain, dr. Bianchi saw pt, continue monitoring.
--- NOTE | 2018-08-08 15:27 | Cardiology Report ---
APPROVED REPORT EXAM: Two-dimensional and M-mode echocardiogram with Doppler and color Doppler. INDICATION Acute [place] M-Mode DIMENSIONS IVSd1.1 (0.7-1.1cm)Left Atrium (MM)4.8 (1.6-4.0cm) LVDd4.4 (3.5-5.6cm)Aortic Root3.1 (2.0-3.7cm) PWd1.4 (0.7-1.1cm)Aortic Cusp Exc.1.8 (1.5-2.0cm) LVDs3.7 (2.5-4.0cm) PWs1.5 cm Normal left ventricular chamber size. Global left ventricular hypokinesis. Septal dyskinesis. Left ventricular ejection fraction estimated to be 35 %. Mild left ventricular hypertrophy by 2D. No evidence of pericardial effusion Moderate bi-atrial enlargement. Right ventricular chamber size is within normal limits. Focal aortic valve sclerosis with adequate cusp excursion. Thickened mitral valve leaflets with normal excursion. Mitral annulus and aortic root calcification. Pulmonic valve not well visualized. Normal tricuspid valve structure. IVC dilated at 2.4 cm with slight physiologic collapse, suggestive of increased RA pressure. A color flow and spectral Doppler study was performed and revealed: Mild aortic insufficiency. There are 2 jets of mild to moderate mitral regurgitations. Mitral inflow velocities indicates possible pseudo normalization pattern implying moderately elevated left atrial pressure (Grade II). Moderate tricuspid regurgitation. Tricuspid systolic velocities suggests peak right ventricular systolic pressure of 48 mmHg, consistent with moderate pulmonary hypertension. Mild pulmonic insufficiency present.
--- NOTE | 2018-08-08 15:35 | Cardiology Report ---
APPROVED REPORT EKG Measurement Heart [id number] Sinus rhythm with premature atrial complexes Possible Left atrial enlargement Nonspecific intraventricular block Possible Lateral infarct, age undetermined Abnormal ECG possible arm lead reversal recommned repeat ekg
--- NOTE | 2018-08-08 15:36 | Cardiology Report ---
APPROVED REPORT EKG Measurement Heart [id number] Sinus tachycardia with occasional premature ventricular complexes Possible Left atrial enlargement Left axis deviation Nonspecific intraventricular block Possible Lateral infarct, age undetermined Abnormal ECG
[2018-08-08 16:00] VITALS: BP 127/73
--- NOTE | 2018-08-08 19:11 | NUR ---
HAND-OFF: Report given to ANTONIO LYLE,resting, no distress, no co pain.
--- NOTE | 2018-08-08 19:15 | NUR ---
NURSE NOTES: Received patient from SHARDA GRACE RN. Awake oriented. no respiratory or cardiac distress noted. SR w/ BBB on the monitor. vs stable. afebrile.Denies any pain at this time. call light in reach.able to use bedside commode. bed in lowest position.will resume plan of care.
[2018-08-08 20:00] VITALS: BP 124/74
[2018-08-09] VITALS: BP 128/79
--- NOTE | 2018-08-09 01:30 | Progress Note ---
DATE: 08/08/2018 SUBJECTIVE: The patient states she is feeling better. She still has congestion, but is less short of breath. OBJECTIVE: VITAL SIGNS: Blood pressure 134/94, pulse 77, and respirations 20. Monitor, sinus with rare atrial ectopy. LUNGS: Diminished breath sounds. No rales. HEART: Regular rhythm and rate. Normal S1, S2 with a fourth heart sound. ABDOMEN: Soft. EXTREMITIES: No edema. IMPRESSION: 1. Non ST-elevation myocardial infarction. 2. Acute on chronic diastolic congestive heart failure. 3. Hypertensive heart disease. 4. Generalized atherosclerosis. 5. Dyslipidemia. 6. Chronic obstructive pulmonary disease. PLAN: 1. Continue optimization and titration of cardiovascular and pulmonary regimen. 2. Titrate diuretic doses accordingly. 3. Replace electrolytes as needed. 4. The patient is awaiting transfer for cardiac catheterization. 5. She continues to have abnormal troponin levels although they are trending downward. 6. Case discussed with daughter as well at bedside. The patient and family members concur with transfer when bed open. Mustapha Bianchi M.D. DR: JOSELUIS JOB#: [id number] CC:
--- NOTE | 2018-08-09 02:22 | NUR ---
NURSE NOTES: patient asleep in bed with no acute distress.no chest pain. SR w/ BBB on monitor. HR of 77. keep patient comfortable. Gina Marmolejo nurse called and given an updates .she said there is no bed available yet.
[2018-08-09 04:00] VITALS: BP 152/91
[2018-08-09] MEDS: Nitroglycerin 2% oint pkt TOPIC SCH ×3 (06:33→18:07)
--- NOTE | 2018-08-09 07:20 | NUR ---
HAND-OFF: Report given to SHARDA GRACE RN using SBAR .Patient remains stable conditions.
--- NOTE | 2018-08-09 07:30 | NUR ---
NURSE NOTES: Received pt from Giulia Gamez RN. Pt is ambulatory and sitting in bed AAOx4 in stable condition. Pt on RA with no cardiopulmonary distress noted. Pt is on a No added salt diet by mouth. Bed commode present and pt is voiding on her own. Skin is intact. L 20g AC noted. Bed is in lowest position and call light within reach.
[2018-08-09 08:00] VITALS: BP 123/84
[2018-08-09] MEDS: Metoprolol Tartrate 12.5mg TAB ORAL SCH ×2 (08:55→20:38)
[2018-08-09] MEDS: Docusate 100mg cap ORAL SCH (08:55)
[2018-08-09] MEDS: Aspirin Baby 81mg ORAL SCH (08:56)
[2018-08-09] MEDS: Enoxaparin 60mg Inj SUBQ SCH ×2 (09:16→20:39)
--- NOTE | 2018-08-09 09:26 | Pulmonology Progress Note ---
Assessment/Plan Assessment/Plan 1. Uxe-IW-xrjigksgp myocardial infarction. 2. Acute on chronic diastolic congestive heart failure. 3. Hypertensive heart disease. 4. Dyslipidemia. 5. Atherosclerosis of aorta 6. COPD Less SOB Continue Advair and prednisone for COPD disc ivory RN and Dr Bianchi waiting for [facility] bed for cath Subjective Interval Events: No new complaints Constitutional: Reports: no symptoms HEENT: Repors: no symptoms Respiratory: Reports: no symptoms Cardiovascular: Reports: no symptoms Gastrointestinal/Abdominal: Reports: no symptoms Genitourinary: Reports: no symptoms Neurologic: Reports: no symptoms Allergies: Coded Allergies: No Known Allergies (Verified Allergy, Mild, 10/06/10) Objective Last 24 Hour Vital Signs Date Time Temp Pulse Resp B/P (MAP) Pulse Ox O2 Delivery O2 Flow Rate FiO2 08/09/18 08:55 87 123/84 08/09/18 08:55 123/84 08/09/18 06:33 152/91 08/09/18 04:00 98.1 84 18 152/91 (111) 95 08/09/18 04:00 78 08/09/18 04:00 Room Air 08/09/18 00:00 97.2 75 18 128/79 (95) 95 08/09/18 00:00 Room Air 08/09/18 00:00 71 08/08/18 21:20 80 124/74 08/08/18 20:00 Room Air 08/08/18 20:00 97.0 80 18 124/74 (91) 95 08/08/18 20:00 75 08/08/18 19:05 Room Air 21 08/08/18 19:04 Room Air 21 08/08/18 17:27 127/73 08/08/18 16:00 Room Air 08/08/18 16:00 97.7 79 20 127/73 (91) 93 08/08/18 16:00 71 08/08/18 12:20 121/76 08/08/18 12:00 Room Air 08/08/18 12:00 68 08/08/18 12:00 97.2 67 20 121/76 (91) 96 08/08/18 09:28 72 134/94 08/08/18 09:28 134/94 Intake and Output 08/08/18 08/09/18 19:00 07:00 Intake Total 450 ml 200 ml Balance 450 ml 200 ml Intake Oral 450 ml 200 ml # Voids 3 2 HEENT: normocephalic Respiratory/Chest: chest wall non-tender Cardiovascular: normal peripheral pulses Abdomen: normal bowel sounds, soft, non tender Current Medications Medications (Trade) Dose Ordered Sig/Oriana Route PRN Reason Start Time Stop Time Status Last Admin Dose Admin Acetaminophen (Tylenol) 650 mg Q4H PRN ORAL Mild Pain/Temp > 100.5 08/06/18 01:15 09/05/18 01:14 Aspirin (ASA) 81 mg DAILY ORAL 08/06/18 09:00 09/05/18 08:59 08/09/18 08:56 Benazepril HCl (Lotensin) 40 mg DAILY ORAL 08/06/18 09:00 09/05/18 08:59 08/09/18 08:55 Docusate Sodium (Colace) 100 mg DAILY ORAL 08/07/18 09:00 09/06/18 08:59 08/09/18 08:55 Enoxaparin Sodium (Lovenox) 60 mg Q12HR SUBQ 08/06/18 09:00 09/05/18 08:59 08/09/18 09:16 Furosemide (Lasix) 20 mg DAILY IV 08/08/18 09:00 09/07/18 08:59 08/09/18 08:56 Hydralazine HCl (Apresoline) 25 mg Q6HR PRN ORAL SBP above 150 08/06/18 01:15 09/05/18 01:14 Magnesium Hydroxide (Mom) 30 ml HSPRN PRN ORAL Constipation 08/06/18 21:30 09/05/18 21:29 08/07/18 17:41 Metoprolol Tartrate (Lopressor) 12.5 mg Q12HR ORAL 08/08/18 09:00 09/07/18 08:59 08/09/18 08:55 Nitroglycerin (Nitro-Bid) 1 inch TID@0600,1200,1800 TOPIC 08/06/18 06:00 09/05/18 05:59 08/09/18 06:33 Potassium Chloride (K-Dur) 20 meq BID ORAL 08/06/18 09:00 09/05/18 08:59 08/09/18 08:56 Pravastatin Sodium (Pravachol) 40 mg BEDTIME ORAL 08/06/18 21:00 09/05/18 20:59 08/08/18 21:21 Prednisone (predniSONE) 40 mg BID ORAL 08/08/18 09:22 09/07/18 09:21 08/09/18 08:56 Salmeterol Xinafoate/ Fluticasone (Advair 250/50 Diskus) 1 puffs BID INH 08/08/18 10:30 09/07/18 10:29 Shaquille Jurado MD Aug 09, 2018 09:26
[2018-08-09] MEDS: Advair 250/50 Inhaler - 14 dose INH SCH ×3 (09:31→23:00)
[2018-08-09 12:00] VITALS: BP 124/77
--- NOTE | 2018-08-09 12:52 | NUR ---
SKI BASE TRIMMERSTICK INSERTER SI: CONGESTIVE HEART FAILURE,ELEVATED TROP T. 98.8 HR 69 RR 19 B/P 124/77 RA 98% IS: LASIX IV PREDNISONE PO LOVENOX SUB LOPRESSOR TRANSFER TO [facility] WHEN BED AVAILABLE STEP DOWN UNIT
--- NOTE | 2018-08-09 15:37 | NUR ---
NURSE NOTES: Contacted Dr. Jurado for GI prophylaxis order. Instructed to order 40mg PO Protonix daily. Pt stable. No cardiopulmonary distress. Bed in lowest position. Side rails up. Call light within reach.
[2018-08-09 16:00] VITALS: BP 135/71
--- NOTE | 2018-08-09 19:15 | NUR ---
NURSE NOTES: Received report from Matty LYLE, pt. received in bed obtunded, pt. opens eyes but non-verbal, no signs of acute cardiac or respiratory distress noted, bed in lowest position and call light within easy reach, pt. is on director of cardiac cath lab, pt. appears to be sating well at 99% on room air- no distress noted, commode at bedside- per endorsement, pt. ambulates with steady gate- pt. aware to ask for assistance, pt. appears to be resting comfortably and is clean and dry, Left AC 20G IV intact and patent, bed in lowest position and call light within easy reach, bed alarm on, side rails up x's3 and safety brakes engaged, safety measures continued, will continue with plan of care. Addendum: 08/09/18 at 1946 by MANDA LOUIS RN RN correction to message above- pt. is not obtunded and is verbal. patient is A/O x's4- able to make needs known- other notes are correct on patient.
--- NOTE | 2018-08-09 19:27 | NUR ---
NURSE NOTES: Report Given to VALDO Julien. Pt is in stable condition. No cardiopulmonary distress noted. Pt is watching TV. Bed in lowest position. Side rails up x 2. Call light within reach.
[2018-08-09 20:00] VITALS: BP 148/74
[2018-08-10] VITALS: BP 120/78
[2018-08-10 04:00] VITALS: BP 132/79
[2018-08-10] MEDS: Nitroglycerin 2% oint pkt TOPIC SCH ×3 (05:28→18:12)
--- NOTE | 2018-08-10 07:15 | NUR ---
HAND-OFF: Report given to Priscila LYLE. pt. remains stable and no signs of distress noted.
[2018-08-10 08:00] VITALS: BP 133/87
[2018-08-10] MEDS: Docusate 100mg cap ORAL SCH (08:30)
[2018-08-10] MEDS: Aspirin Baby 81mg ORAL SCH (08:31)
[2018-08-10] MEDS: Metoprolol Tartrate 12.5mg TAB ORAL SCH ×2 (08:32→20:07)
[2018-08-10] MEDS: Enoxaparin 60mg Inj SUBQ SCH ×2 (08:33→20:07)
[2018-08-10] MEDS: Advair 250/50 Inhaler - 14 dose INH SCH (08:42)
--- NOTE | 2018-08-10 10:08 | Pulmonology Progress Note ---
Assessment/Plan Assessment/Plan 1. Smi-AG-acsbhpfme myocardial infarction. 2. Acute on chronic diastolic congestive heart failure. 3. Hypertensive heart disease. 4. Dyslipidemia. 5. Atherosclerosis of aorta 6. COPD Less SOB Continue Advair and prednisone for COPD disc w RN waiting for [facility] bed for cath Subjective Interval Events: Feeling better Constitutional: Reports: no symptoms HEENT: Repors: no symptoms Respiratory: Reports: no symptoms Cardiovascular: Reports: no symptoms Gastrointestinal/Abdominal: Reports: no symptoms Genitourinary: Reports: no symptoms Allergies: Coded Allergies: No Known Allergies (Verified Allergy, Mild, 10/06/10) Objective Last 24 Hour Vital Signs Date Time Temp Pulse Resp B/P (MAP) Pulse Ox O2 Delivery O2 Flow Rate FiO2 08/10/18 08:44 91 18 94 Room Air 21 08/10/18 08:43 93 18 94 Room Air 21 08/10/18 08:32 76 127/67 08/10/18 08:31 127/79 08/10/18 05:28 132/79 08/10/18 04:00 97.8 80 20 132/79 (96) 97 08/10/18 04:00 78 08/10/18 04:00 Room Air 08/10/18 00:00 76 08/10/18 00:00 Room Air 08/10/18 00:00 98.2 80 20 120/78 (92) 95 08/09/18 20:38 75 148/75 08/09/18 20:00 Room Air 08/09/18 20:00 76 08/09/18 20:00 97.6 75 20 148/74 (98) 96 08/09/18 19:05 71 16 96 Room Air 21 08/09/18 19:05 71 16 99 Room Air 21 08/09/18 18:07 135/71 08/09/18 16:00 97.5 73 19 135/71 (92) 96 08/09/18 16:00 Room Air 08/09/18 16:00 75 08/09/18 13:00 124/77 08/09/18 12:00 Room Air 08/09/18 12:00 76 08/09/18 12:00 98.8 69 19 124/77 (93) 97 Intake and Output 08/09/18 08/10/18 19:00 07:00 Intake Total 700 ml Balance 700 ml Intake Oral 700 ml # Voids 6 2 General Appearance: no acute distress HEENT: normocephalic Respiratory/Chest: chest wall non-tender, lungs clear Cardiovascular: normal peripheral pulses, normal rate Current Medications Medications (Trade) Dose Ordered Sig/Oriana Route PRN Reason Start Time Stop Time Status Last Admin Dose Admin Acetaminophen (Tylenol) 650 mg Q4H PRN ORAL Mild Pain/Temp > 100.5 08/06/18 01:15 09/05/18 01:14 Aspirin (ASA) 81 mg DAILY ORAL 08/06/18 09:00 09/05/18 08:59 08/10/18 08:31 Benazepril HCl (Lotensin) 40 mg DAILY ORAL 08/06/18 09:00 09/05/18 08:59 08/10/18 08:31 Docusate Sodium (Colace) 100 mg DAILY ORAL 08/07/18 09:00 09/06/18 08:59 08/10/18 08:30 Enoxaparin Sodium (Lovenox) 60 mg Q12HR SUBQ 08/06/18 09:00 09/05/18 08:59 08/10/18 08:33 Furosemide (Lasix) 20 mg DAILY IV 08/08/18 09:00 09/07/18 08:59 08/10/18 08:32 Hydralazine HCl (Apresoline) 25 mg Q6HR PRN ORAL SBP above 150 08/06/18 01:15 09/05/18 01:14 Magnesium Hydroxide (Mom) 30 ml HSPRN PRN ORAL Constipation 08/06/18 21:30 09/05/18 21:29 08/07/18 17:41 Metoprolol Tartrate (Lopressor) 12.5 mg Q12HR ORAL 08/08/18 09:00 09/07/18 08:59 08/10/18 08:32 Nitroglycerin (Nitro-Bid) 1 inch TID@0600,1200,1800 TOPIC 08/06/18 06:00 09/05/18 05:59 08/10/18 05:28 Pantoprazole (Protonix) 40 mg DAILY ORAL 08/09/18 18:00 09/08/18 17:59 08/10/18 08:30 Potassium Chloride (K-Dur) 20 meq BID ORAL 08/06/18 09:00 09/05/18 08:59 08/10/18 08:30 Pravastatin Sodium (Pravachol) 40 mg BEDTIME ORAL 08/06/18 21:00 09/05/18 20:59 08/09/18 20:38 Prednisone (predniSONE) 40 mg BID ORAL 08/08/18 09:22 09/07/18 09:21 08/10/18 08:31 Salmeterol Xinafoate/ Fluticasone (Advair 250/50 Diskus) 1 puffs BID INH 08/08/18 10:30 09/07/18 10:29 08/10/18 08:42 Shaquille Jurado MD Aug 10, 2018 10:08
--- NOTE | 2018-08-10 11:27 | NUR ---
RD ASSESSMENT & RECOMMENDATIONS SEE CARE ACTIVITY FOR COMPLETE ASSESSMENT DAILY ESTIMATED NEEDS: Needs based on cardiac, pulmonary, obese 53.5kg adj 25-30 kcals/kg [id number] total kcals 1-1.5 g protein/kg 54-80 g total protein Fluid per MD, on lasix NUTRITION DIAGNOSIS: Decreased sodium and fat needs r/t clinical status and obese status as evidenced by pt w/ COPD, CHF (elev BNP), BL LE edema, BMI >30, pt is 171% of Lyle Body Weight. CURRENT DIET: LADAN PO DIET RECOMMENDATIONS: Cardiac diet ADDITIONAL RECOMMENDATIONS: 1) Obtain a standing weight for accurate daily weights 2) Monitor BG on prednisone 3) Monitor lytes daily on lasix
[2018-08-10 12:00] VITALS: BP 133/90
[2018-08-10 16:00] VITALS: BP 132/80
--- NOTE | 2018-08-10 17:17 | NUR ---
HAND-OFF: Report given to
--- NOTE | 2018-08-10 19:07 | NUR ---
HAND-OFF: Report given to VALDO Julien.
--- NOTE | 2018-08-10 19:20 | NUR ---
NURSE NOTES: Received report from Purnima RN, pt. received in bed, pt. awake in bed watching television, no signs of acute cardiac or respiratory distress noted, bed in lowest position and call light within easy reach, pt. is on clinical research monitor, pt. appears to be sating well at 98% on room air- no distress noted, commode at bedside- per endorsement, pt. ambulates with steady gate- pt. aware to ask for assistance when ambulating, pt. appears to be resting comfortably and appears to be clean and dry, Left AC 20G IV intact and patent, bed in lowest position and call light within easy reach, bed alarm on, side rails up x's3 and safety brakes engaged, safety measures continued, will continue with plan of care.
[2018-08-10 20:00] VITALS: BP 123/75
--- NOTE | 2018-08-10 23:35 | NUR ---
NURSE NOTES: per DR. Bianchi order given to transfer pt. to Telemetry- will carry out order.
[2018-08-11] VITALS: BP 130/77
--- NOTE | 2018-08-11 | NUR ---
NURSE NOTES: Gina calling- no bed available yet.
--- NOTE | 2018-08-11 01:45 | Progress Note ---
DATE: 08/09/2018 CARDIOLOGY PROGRESS NOTE SUBJECTIVE: The patient feels worse today with shortness of breath and congestion and swelling. OBJECTIVE: VITAL SIGNS: Blood pressure 123/84, pulse 87, and respirations 18. LUNGS: Coarse breath sounds. Few rhonchi. HEART: Regular rhythm and rate. Normal S1, S2. ABDOMEN: Soft. EXTREMITIES: Trace to 1+ dependent edema. IMPRESSION: 1. Acute on chronic diastolic congestive heart failure. 2. Pulmonary hypertension. 3. Chronic obstructive pulmonary disease. 4. Hypertensive heart disease. 5. Uhh-HG-zvvtrapri myocardial infarction. PLAN: 1. Diuresis. 2. Respiratory hygiene. 3. Bronchodilators. 4. Anti-platelet and antianginal therapy. 5. Assessment of coronary anatomy by cardiac catheterization pending transfer to tertiary care facility where catheterization laboratory is available. Mustapha Bianchi M.D. DR: JOSELUIS JOB#: [id number] CC:
--- NOTE | 2018-08-11 02:00 | Progress Note ---
DATE: 08/11/2018 CARDIOLOGY PROGRESS NOTE SUBJECTIVE: The patient feels slightly better today, but notes more swelling again. OBJECTIVE: VITAL SIGNS: Blood pressure 123/75, pulse 82, and respiratory rate 20. Monitored rhythm sinus. LUNGS: Coarse breath sounds. Few rhonchi. HEART: Regular rhythm and rate. Normal S1, S2. There is a fourth heart sound. ABDOMEN: Soft. EXTREMITIES: A 1+ dependent edema. LABORATORY DATA: No new labs. IMPRESSION: 1. Acute bbj-KI-qpcnewdkn myocardial infarction. 2. Acute on chronic diastolic congestive heart failure. 3. Chronic obstructive pulmonary disease with exacerbation. 4. Chronic kidney disease. PLAN: 1. Additional diuresis. 2. Continue antianginal, anti-platelet, and anti-lipid drugs. 3. Call made to [facility] again today confirming the patient is on transfer list, but still no bed available. 4. Cardiac catheterization will be pursued immediately upon her arrival. Mustapha Bianchi M.D. DR: JOSELUIS JOB#: [id number] CC:
[2018-08-11 04:00] VITALS: BP 134/64
[2018-08-11] MEDS: Nitroglycerin 2% oint pkt TOPIC SCH ×3 (05:14→17:04)
--- NOTE | 2018-08-11 06:59 | NUR ---
HAND-OFF: Report given Daija RN, pt. remains stable and no signs of distress noted.
--- NOTE | 2018-08-11 07:00 | NUR ---
NURSE NOTES: BEDSIDE REPORT RECEIVED FROM VALDO HOLMAN. PT IS X4, ABLE TO MAKE NEEDS KNOWN. EQUITY RESEARCH ANALYST ON, SHOWING SR W/ BBB. BREAKFAST AT BEDSIDE. BEDSIDE COMMODE NEARBY. SKIN IS CLEAN, DRY, INTACT. LAC 20G; ASYMPTOMATIC. LABS OK. AWAITING BED AT [facility], RN SAID THEY CALLED LAST NIGHT AND THERE IS STILL NO BED. ORDER TO TRANSFER TO [facility], AWAITING BED AVAILIBILITY. BED IS LOCKED IN LOWEST POSITION, SIDE RAILS X3, CALL [place]ALLEY WITHIN REACH, BED ALARM ON. WILL CONTINUE TO MONITOR AND FOLLOW W/ PLAN OF CARE.
[2018-08-11 07:44] LABS: HEMATOCRIT 36.2 % (37.0-47.0); HEMOGLOBIN 12.6 G/DL (12.0-16.0); MEAN CORPUSCULAR VOLUME 92 FL (80-99); PLATELET COUNT 193 K/UL (150-450); RED BLOOD COUNT 3.92 M/UL (4.20-5.40); RED CELL DISTRIBUTION WIDTH 14.1 % (11.6-14.8); WHITE BLOOD COUNT 7.2 K/UL (4.8-10.8)
[2018-08-11 08:00] VITALS: BP 133/70
[2018-08-11] MEDS: Metoprolol Tartrate 12.5mg TAB ORAL SCH ×2 (08:10→20:42)
[2018-08-11] MEDS: Docusate 100mg cap ORAL SCH (08:11)
[2018-08-11] MEDS: Aspirin Baby 81mg ORAL SCH (08:12)
[2018-08-11] MEDS: Heparin 5000 units/ml inj SUBQ SCH ×2 (08:17→20:44)
[2018-08-11 08:51] LABS: ALANINE AMINOTRANSFERASE 52 U/L (12-78); ALBUMIN 3.1 G/DL (3.4-5.0); ALKALINE PHOSPHATASE 51 U/L (46-116); ANION GAP 8 mmol/L (5-15); ASPARTATE AMINO TRANSFERASE 27 U/L (15-37); BLOOD UREA NITROGEN 21 mg/dL (7-18); CALCIUM 8.9 MG/DL (8.5-10.1); CARBON DIOXIDE 28 MMOL/L (21-32); CHLORIDE 105 MMOL/L (98-107); CREATININE 0.9 MG/DL (0.55-1.30); POTASSIUM 4.4 MMOL/L (3.5-5.1); SODIUM 141 MMOL/L (136-145)
[2018-08-11] MEDS: Advair 250/50 Inhaler - 14 dose INH SCH ×2 (10:00→22:01)
--- NOTE | 2018-08-11 10:08 | NUR ---
HAND-OFF: Report given to VALDO Francois.
[2018-08-11 12:00] VITALS: BP 132/61
--- NOTE | 2018-08-11 13:17 | Pulmonology Progress Note ---
Assessment/Plan Assessment/Plan 1. Ztk-RI-mhwwrdioi myocardial infarction. 2. Acute on chronic diastolic congestive heart failure. 3. Hypertensive heart disease. 4. Dyslipidemia. 5. Atherosclerosis of aorta 6. COPD Less SOB Continue Advair and prednisone for COPD disc w RN waiting for [facility] bed for cath Subjective Interval Events: none new Constitutional: Reports: no symptoms HEENT: Repors: no symptoms Respiratory: Reports: no symptoms Cardiovascular: Reports: no symptoms Allergies: Coded Allergies: No Known Allergies (Verified Allergy, Mild, 10/06/10) Objective Last 24 Hour Vital Signs Date Time Temp Pulse Resp B/P (MAP) Pulse Ox O2 Delivery O2 Flow Rate FiO2 08/11/18 12:24 133/70 08/11/18 11:39 80 20 97 Room Air 21 08/11/18 11:38 80 20 94 Room Air 21 08/11/18 08:21 133/70 08/11/18 08:10 74 134/64 08/11/18 08:00 Room Air 08/11/18 08:00 97.2 73 16 133/70 (91) 98 08/11/18 08:00 88 08/11/18 05:14 134/64 08/11/18 04:00 74 08/11/18 04:00 Room Air 08/11/18 04:00 98.8 70 20 134/64 (87) 97 08/11/18 00:00 Room Air 08/11/18 00:00 69 08/11/18 00:00 98.0 69 20 130/77 (94) 95 08/10/18 23:01 88 20 96 Room Air 21 08/10/18 22:59 86 20 96 Room Air 21 08/10/18 20:07 82 123/75 08/10/18 20:00 76 08/10/18 20:00 97.7 82 20 123/75 (91) 96 08/10/18 20:00 Room Air 08/10/18 18:12 132/80 08/10/18 16:48 Room Air 08/10/18 16:00 86 08/10/18 16:00 98.1 82 22 132/80 (97) 95 Intake and Output 08/10/18 08/11/18 19:00 07:00 Output Total 240 ml Balance -240 ml Output Urine Total 240 ml # Voids 2 General Appearance: no acute distress HEENT: normocephalic Respiratory/Chest: chest wall non-tender, lungs clear Cardiovascular: normal peripheral pulses, normal rate Abdomen: normal bowel sounds, soft, non tender Laboratory Tests 08/11/18 06:38: White Blood Count 7.2, Red Blood Count 3.92L, Hemoglobin 12.6, Hematocrit 36.2L , Mean Corpuscular Volume 92, Mean Corpuscular Hemoglobin 32.2H, Mean Corpuscular Hemoglobin Concent 35.0, Red Cell Distribution Width 14.1, Platelet Count 193, Mean Platelet Volume 9.4, Neutrophils (%) (Auto) , Lymphocytes (%) ( Auto) , Monocytes (%) (Auto) , Eosinophils (%) (Auto) , Basophils (%) (Auto) , Differential Total Cells Counted 100, Neutrophils % (Manual) 85H, Lymphocytes % (Manual) 8L, Monocytes % (Manual) 7, Eosinophils % (Manual) 0, Basophils % ( Manual) 0, Band Neutrophils 0, Platelet Estimate Adequate, Platelet Morphology Normal, Hypochromasia 1+, Anisocytosis 1+, Sodium Level 141, Potassium Level 4.4 , Chloride Level 105, Carbon Dioxide Level 28, Anion Gap 8, Blood Urea Nitrogen 21H, Creatinine 0.9, Estimat Glomerular Filtration Rate , Glucose Level 130H, Calcium Level 8.9, Magnesium Level 1.9, Total Bilirubin 1.0, Aspartate Amino Transf (AST/SGOT) 27, Alanine Aminotransferase (ALT/SGPT) 52, Alkaline Phosphatase 51, Troponin I 0.275H, Pro-B-Type Natriuretic Peptide 4107H, Total Protein 6.2L, Albumin 3.1L, Globulin 3.1, Albumin/Globulin Ratio 1.0 Current Medications Medications (Trade) Dose Ordered Sig/Oriana Route PRN Reason Start Time Stop Time Status Last Admin Dose Admin Acetaminophen (Tylenol) 650 mg Q4H PRN ORAL Mild Pain/Temp > 100.5 08/06/18 01:15 09/05/18 01:14 Aspirin (ASA) 81 mg DAILY ORAL 08/06/18 09:00 09/05/18 08:59 08/11/18 08:12 Benazepril HCl (Lotensin) 40 mg DAILY ORAL 08/06/18 09:00 09/05/18 08:59 08/11/18 08:21 Docusate Sodium (Colace) 100 mg DAILY ORAL 08/07/18 09:00 09/06/18 08:59 08/11/18 08:11 Furosemide (Lasix) 40 mg DAILY IV 08/11/18 09:00 09/10/18 08:59 08/11/18 08:12 Heparin Sodium (Porcine) (Heparin 5000 units/ml) 5,000 units EVERY 12 HOURS SUBQ 08/11/18 09:00 09/10/18 08:59 08/11/18 08:17 Hydralazine HCl (Apresoline) 25 mg Q6HR PRN ORAL SBP above 150 08/06/18 01:15 09/05/18 01:14 Magnesium Hydroxide (Mom) 30 ml HSPRN PRN ORAL Constipation 08/06/18 21:30 09/05/18 21:29 08/07/18 17:41 Metoprolol Tartrate (Lopressor) 12.5 mg Q12HR ORAL 08/08/18 09:00 09/07/18 08:59 08/11/18 08:10 Nitroglycerin (Nitro-Bid) 1 inch TID@0600,1200,1800 TOPIC 08/06/18 06:00 09/05/18 05:59 08/11/18 12:24 Pantoprazole (Protonix) 40 mg DAILY ORAL 08/09/18 18:00 09/08/18 17:59 08/11/18 08:11 Potassium Chloride (K-Dur) 20 meq BID ORAL 08/06/18 09:00 09/05/18 08:59 08/11/18 08:11 Pravastatin Sodium (Pravachol) 40 mg BEDTIME ORAL 08/06/18 21:00 09/05/18 20:59 08/10/18 20:06 Prednisone (predniSONE) 40 mg BID ORAL 08/08/18 09:22 09/07/18 09:21 08/11/18 08:10 Salmeterol Xinafoate/ Fluticasone (Advair 250/50 Diskus) 1 puffs BID INH 08/08/18 10:30 09/07/18 10:29 08/11/18 10:00 Shaquille Jurado MD Aug 11, 2018 13:17
[2018-08-11 16:00] VITALS: BP 132/82
--- NOTE | 2018-08-11 16:00 | NUR ---
*-* DISCHARGE PLANNING *-* PATIENT HAS BEEN REFERRED TO: [facility] P:[phone] F:[phone]
--- NOTE | 2018-08-11 19:35 | NUR ---
NURSE NOTES: Report paper received from Endy arredondo RN, pt. received in bed, pt. is awake in bed watching television, no signs of acute cardiac or respiratory distress noted, bed in lowest position and call light within easy reach, pt. is on senior technologist, pt. appears to be sating well at 99% on room air- no distress noted, commode at bedside- pt. aware to ask for assistance when ambulating to commode, pt. appears to be resting comfortably and appears to be clean and dry, Left AC 20G IV intact and patent, bed in lowest position and call light within easy reach, bed alarm on, side rails up x's3 and safety brakes engaged, safety measures continued, will continue with plan of care.
[2018-08-11 20:00] VITALS: BP 118/71
[2018-08-11] MEDS ORDERED: Tubing IV Secondary IV ONE (20:25)
[2018-08-11] MEDS ORDERED: NS 275ml ONE (20:25)
[2018-08-12] VITALS: BP 136/87
[2018-08-12 04:00] VITALS: BP 130/75
[2018-08-12] MEDS: Nitroglycerin 2% oint pkt TOPIC SCH ×3 (05:02→17:21)
--- NOTE | 2018-08-12 06:37 | NUR ---
NURSE NOTES: per Charge nurse Endy- quality assurance monitor calling regarding patient having 12 beat of V tach- assessed patient, pt. stating she is okay and that she want to sleep. Pt. appears to be asymptomatic and no distress noted. will continue to monitor pt. and with plan of care.
--- NOTE | 2018-08-12 06:43 | NUR ---
NURSE NOTES: left msg for DR. Bianchi regarding pt. having 12 beats of V- tach- pt. stable- waiting for call back from doctor.
--- NOTE | 2018-08-12 07:08 | NUR ---
HAND-OFF: Report given to Deandra Rn, pt. stable and no signs of distress noted. Aware to f/u on V- tach with DR. Bianchi.
--- NOTE | 2018-08-12 07:08 | NUR ---
NURSE NOTES: RECEIVED PATIENT FROM Roseline LOUIS RN. PATIENT IS SITTING IN BED, AWAKE, ALERT AND ORIENTED. HOOKED TO SPACE SCHEDULER. ON ROOM AIR. NO SIGNS OF DISTRESS. SHE USES BEDSIDE COMMODE. IV ON L AC G20, SL. CALL LIGHT WITHIN REACH. BED AT LOWEST POSITION. SIDE RAILS UP. WILL CONTINUE TO MONITOR.
[2018-08-12 08:00] VITALS: BP 133/81
[2018-08-12] MEDS: Metoprolol Tartrate 12.5mg TAB ORAL SCH ×2 (09:04→21:08)
[2018-08-12] MEDS: Docusate 100mg cap ORAL SCH (09:05)
[2018-08-12] MEDS: Aspirin Baby 81mg ORAL SCH (09:05)
[2018-08-12] MEDS: Heparin 5000 units/ml inj SUBQ SCH ×2 (09:06→21:10)
[2018-08-12] MEDS: Advair 250/50 Inhaler - 14 dose INH SCH ×2 (09:09→17:23)
--- NOTE | 2018-08-12 12:42 | NUR ---
CASE MANAGEMENT: REVIEW SI: CHF . NSTEMI T 97.2 HR 85 RR 20 BP 133/81 SAT 96% ROOM AIR TROPONIN I 0.275 IS: LASIX IV QD HEPARIN SQ Q12HR PROTONIX PO QD PREDNISONE PO BID NITRO TOPICAL BID K-DUR PO BID STEP DOWN UNIT STATUS DCP: PATIENT IS FROM HOME
[2018-08-12 13:00] VITALS: BP 122/84
--- NOTE | 2018-08-12 14:58 | Pulmonology Progress Note ---
Assessment/Plan Assessment/Plan 1. Qsi-VJ-jpqjagkmw myocardial infarction. 2. Acute on chronic diastolic congestive heart failure. 3. Hypertensive heart disease. 4. Dyslipidemia. 5. Atherosclerosis of aorta 6. COPD Less SOB decrease steroids to 20 bid on Ra check Sat Continue Advair ewa w RN waiting for [facility] bed for cath Subjective ROS Limited/Unobtainable: No Constitutional: Reports: no symptoms HEENT: Repors: no symptoms Respiratory: Reports: no symptoms Cardiovascular: Reports: no symptoms Gastrointestinal/Abdominal: Reports: no symptoms Genitourinary: Reports: no symptoms Allergies: Coded Allergies: No Known Allergies (Verified Allergy, Mild, 10/06/10) Subjective no cp oob on ra awaiting transfer to [facility] for cath Objective Last 24 Hour Vital Signs Date Time Temp Pulse Resp B/P (MAP) Pulse Ox O2 Delivery O2 Flow Rate FiO2 08/12/18 13:00 96.6 71 20 122/84 (97) 98 08/12/18 12:00 Room Air 08/12/18 11:51 133/81 08/12/18 09:04 85 133/81 08/12/18 09:04 133/81 08/12/18 08:00 97.2 85 20 133/81 (98) 96 08/12/18 08:00 Room Air 08/12/18 08:00 91 08/12/18 05:02 130/75 08/12/18 04:00 62 08/12/18 04:00 97.7 82 20 130/75 (93) 96 08/12/18 04:00 Room Air 08/12/18 00:00 97.8 62 20 136/87 (103) 96 08/12/18 00:00 Room Air 08/12/18 00:00 65 08/12/18 00:00 Room Air 08/11/18 22:02 85 20 97 Room Air 21 08/11/18 22:01 82 20 95 Room Air 21 08/11/18 20:42 94 118/71 08/11/18 20:00 97.7 73 20 118/71 (87) 96 08/11/18 20:00 Room Air 08/11/18 20:00 77 08/11/18 17:23 74 08/11/18 17:04 133/70 08/11/18 16:00 97.7 73 20 132/82 (99) 73 08/11/18 16:00 Room Air Intake and Output 08/11/18 08/12/18 19:00 07:00 # Voids 6 4 General Appearance: WD/WN Respiratory/Chest: lungs clear, no respiratory distress Cardiovascular: normal rate, regularly irregular Abdomen: soft, non tender, non distended Extremities: no cyanosis Neurologic/Psychiatric: no motor/sensory deficits, alert, oriented x 3 Musculoskeletal: normal muscle bulk Current Medications Medications (Trade) Dose Ordered Sig/Oriana Route PRN Reason Start Time Stop Time Status Last Admin Dose Admin Acetaminophen (Tylenol) 650 mg Q4H PRN ORAL Mild Pain/Temp > 100.5 08/06/18 01:15 09/05/18 01:14 Aspirin (ASA) 81 mg DAILY ORAL 08/06/18 09:00 09/05/18 08:59 08/12/18 09:05 Benazepril HCl (Lotensin) 40 mg DAILY ORAL 08/06/18 09:00 09/05/18 08:59 08/12/18 09:04 Docusate Sodium (Colace) 100 mg DAILY ORAL 08/07/18 09:00 09/06/18 08:59 08/12/18 09:05 Furosemide (Lasix) 40 mg DAILY IV 08/11/18 09:00 09/10/18 08:59 08/12/18 09:04 Heparin Sodium (Porcine) (Heparin 5000 units/ml) 5,000 units EVERY 12 HOURS SUBQ 08/11/18 09:00 09/10/18 08:59 08/12/18 09:06 Hydralazine HCl (Apresoline) 25 mg Q6HR PRN ORAL SBP above 150 08/06/18 01:15 09/05/18 01:14 Magnesium Hydroxide (Mom) 30 ml HSPRN PRN ORAL Constipation 08/06/18 21:30 09/05/18 21:29 08/07/18 17:41 Metoprolol Tartrate (Lopressor) 12.5 mg Q12HR ORAL 08/08/18 09:00 09/07/18 08:59 08/12/18 09:04 Nitroglycerin (Nitro-Bid) 1 inch TID@0600,1200,1800 TOPIC 08/06/18 06:00 09/05/18 05:59 08/12/18 11:51 Pantoprazole (Protonix) 40 mg DAILY ORAL 08/09/18 18:00 09/08/18 17:59 08/12/18 09:04 Potassium Chloride (K-Dur) 20 meq BID ORAL 08/06/18 09:00 09/05/18 08:59 08/12/18 09:05 Pravastatin Sodium (Pravachol) 40 mg BEDTIME ORAL 08/06/18 21:00 09/05/18 20:59 08/11/18 20:43 Prednisone (predniSONE) 40 mg BID ORAL 08/08/18 09:22 09/07/18 09:21 08/12/18 09:04 Salmeterol Xinafoate/ Fluticasone (Advair 250/50 Diskus) 1 puffs BID INH 08/08/18 10:30 09/07/18 10:29 08/12/18 09:09 Denise Dee DO Aug 12, 2018 14:58
[2018-08-12 16:00] VITALS: BP 128/90
--- NOTE | 2018-08-12 18:29 | NUR ---
NURSE NOTES: PATIENT KEPT CLEAN AND DRY. NO SIGNS OF DISTRESS. STILL ON ROOM AIR. WILL CONTINUE TO MONITOR.
--- NOTE | 2018-08-12 19:05 | NUR ---
HAND-OFF: Report given to Roseline Ascencio RN.
--- NOTE | 2018-08-12 19:15 | NUR ---
NURSE NOTES: Report Received from Deandra RN, pt. received in bed, pt. is in bed asleep, respirations unlabored and even- no signs of acute cardiac or respiratory distress noted, cardiac monitoring on, bed in lowest position and call light within easy reach, pt. appears to be sating well at 98% on room air- no distress noted, commode at bedside- pt. aware to ask for assistance when ambulating to commode, pt. appears to be resting comfortably and appears to be clean and dry, Left AC 20G IV intact and patent, bed in lowest position and call light within easy reach, bed alarm on, side rails up x's3 and safety brakes engaged, safety measures continued, will continue with plan of care.
--- NOTE | 2018-08-12 19:55 | NUR ---
HAND-OFF: Report given to Annabelle RN- pt. transferred to telemetry- pt. remains stable and no signs of distress noted.
[2018-08-12 20:00] VITALS: BP_SYST 128; BP_SYST 143; BP_DIAS 78; BP_DIAS 90
[2018-08-12] MEDS ORDERED: HydrALAZINE 25mg tab ORAL PRN (20:00)
--- NOTE | 2018-08-12 20:05 | NUR ---
NURSE NOTES: Report received from Wily LYLE. Pt transferred from [facility] to [facility] via edward bed without incidence. Belongings list checked with transferring RN and patient at bedside. All belongings present and accounted for. Pt is in stable condition upon transfer. Pt is awake, alert, and oriented x4. Pt is on room air and breathing is even and unlabored. No acute distress noted. Pt denies pain at this time. IV site is noted to be asymptomatic, patent, and intact. Pt aware to request for assistance with ambulation to bathroom. Bed placed in lowest position with brake engaged, side rails up x3, and bed alarm on. Call light and side table placed within reach. Will continue to monitor.
[2018-08-12] MEDS ORDERED: Milk of Magnesia 30ml Ud ORAL PRN (21:30)
[2018-08-13] VITALS: BP 133/77
[2018-08-13 04:00] VITALS: BP 128/73
[2018-08-13] MEDS ORDERED: Nitroglycerin 2% oint pkt TOPIC SCH (06:00)
--- NOTE | 2018-08-13 06:15 | Progress Note ---
DATE: 08/12/2018 CARDIOLOGY PROGRESS NOTE SUBJECTIVE: No chest pain. Still with shortness of breath. Monitored rhythm is sinus with 12-beat run of a ventricular tachycardia. OBJECTIVE: VITAL SIGNS: Blood pressure 132/81, heart rate 85, and respiratory rate 20. LUNGS: Coarse breath sounds, rhonchi. CARDIAC: Regular rhythm and rate. Normal S1, S2. ABDOMEN: Soft. EXTREMITIES: Trace edema. IMPRESSION: 1. Acute on chronic diastolic congestive heart failure. 2. Mir-EU-jzshmjayn myocardial infarction. 3. Paroxysmal ventricular tachycardia. 4. Hypertensive heart disease. 5. Dyslipidemia. 6. Atherosclerosis. 7. COPD with exacerbation. PLAN: 1. Beta-blockade, anti-platelet therapy, and nitrates as needed. 2. Anti-lipid drugs for LDL goal less than 100 at this time. 3. Respiratory hygiene, bronchodilators, and steroids per freelance art director. 4. Assessment of coronary anatomy is pending and bed availability at [facility]. Mustapha Bianchi M.D. DR: MEGAN JOB#: [id number] CC:
--- NOTE | 2018-08-13 07:30 | NUR ---
NURSE NOTES: Received report from Julio Cesar Alanis. Pt is sitting up in bed having breakfast. No distress is noted. Bed is in lowest position, side rails up X2 and call light is within reach. Will continue to monitor
--- NOTE | 2018-08-13 07:45 | NUR ---
HAND-OFF: Report given to VALDO Lundberg. Pt is resting in bed in stable condition. No acute distress noted. Endorsed plan of care.
[2018-08-13 08:00] VITALS: BP 136/75
[2018-08-13] MEDS: Metoprolol Tartrate 12.5mg TAB ORAL SCH (08:50)
[2018-08-13 08:51] VITALS: BP 125/78
[2018-08-13] MEDS: Heparin 5000 units/ml inj SUBQ SCH (08:55)
[2018-08-13] MEDS ORDERED: Aspirin Baby 81mg ORAL SCH (09:00)
[2018-08-13] MEDS ORDERED: Advair 250/50 Inhaler - 14 dose INH SCH (09:00)
[2018-08-13] MEDS ORDERED: Docusate 100mg cap ORAL SCH (09:00)
--- NOTE | 2018-08-13 10:30 | NUR ---
NURSE NOTES: Received call from Delano at [facility] informing us that there is a bed available for the patient. Called Dr. Bianchi and left message for him regarding transfer.
--- NOTE | 2018-08-13 11:18 | NUR ---
NURSE NOTES: called [facility] to give report. Report was given to Julio Cesar Ramírez who will be taking patient on arrival.
--- NOTE | 2018-08-13 12:59 | NUR ---
NURSE NOTES: Pt was transferred via Ambulance. IV was left on pt per [facility] request. Heart monitor was removed and returned. Belongings with pt at time of discharge. Signed belongings list is with the pt. Pt stable at time of DC
--- NOTE | 2018-08-14 09:08 | Discharge Summary ---
Discharge Summary Discharge Summary _ DATE OF ADMISSION: 1019 DATE OF DISCHARGE: 08/13/2018 DISCHARGED BY: Dr. Vidales REASON FOR ADMISSION: 79 years old female with past medical history of hypertension, congestive heart failure, angina, osteoarthritis, presented to emergency department with shortness of breath. She denied chest pain. She had scratchy throat for few days, nonproductive cough for 2 days. She also complained of leg swelling , but denied calf pain. She felt chills, but no documented fever. She denied nausea, vomiting, diarrhea, dysuria. She felt like her heart was pounding . Upon evaluation vital signs revealed tachycardia with heart rate 108, blood pressure 152/69, pulse oximetry was stable on room air. Laboratory workup revealed no leukocytosis, stable hemoglobin and hematocrit. Potassium 3.2. BUN 17 creatinine 1.2. Troponin - 0.723. Pro BNP 8023. EKG was abnormal and revealed sinus tachycardia with occasional premature ventricular complexes. Possible Left atrial enlargement. Left axis deviation. Nonspecific intraventricular block Possible Lateral infarct, age undetermined. No acute ST changes noted. Stable LFT. Chest x-ray revealed nonspecific density in the medial right lung base, possibly atelectasis, scar versus infectious or inflammatory process. Urinalysis revealed no evidence of UTI. Patient was admitted to telemetry floor for further management. CONSULTANTS: food checkers and cashiers supervisor [facility] COURSE: Patient admitted to telemetry floor. Outside Plant Cable Engineer followed. Serial troponin were trended down, but remain elevated. He was started on full anticoagulation with Lovenox. Antiplatelet therapy with aspirin and antianginal therapy with topical nitroglycerin initiated. CT angiogram of chest revealed no central pulmonary emboli. Small bilateral pleural effusion noted. Supplemental oxygen provided as needed to keep pulse oximetry above 92%. Pulmonary toilet was on standby as needed. Patient started on diuresis with Lasix close monitoring of volumes and cardiorenal parameters. Pro BNP down from 8023 to 4107. Follow-up chest x-ray revealed no infiltrate or congestion. Lipid panel revealed elevated LDL of 141 i, stable cholesterol 181. TSH within normal limits. Antiplatelet therapy with aspirin and statin were continued. Echocardiogram revealed reduced ejection fraction of 25%. Global left ventricular hypokinesis with septal dyskinesis. Moderate biatrial enlargement. Mild to moderate mitral regurgitation. Moderately elevated left atrial pressure grade 2. Right ventricular systolic pressure of 48 consistent with moderate pulmonary hypertension. Anti-failure regimen with beta-nathaniel, ARI inhibitor and diuretic was continued. Patient required transfer to tertiary facility for cardiac catheterization . Patient was placed on the waiting list. Supplemental oxygen and pulmonary toilet provided as needed. Patient started on oral steroids with tapering down and Advair. Renal parameters and electrolytes were closely monitored. Electrolytes corrected as needed , namely potassium and magnesium. Patient was continued on antianginal, antiplatelet, anti-failure and antilipid therapy. GI prophylaxis provided. Supportive care provided. Patient subsequently was transferred to [facility] for cardiac catheterization and further management. FINAL DIAGNOSES: NSTEMI Acute on chronic diastolic congestive heart failure Cardiomyopathy with ejection fraction 35% Hypertensive heart disease Dyslipidemia Atherosclerosis COPD with exacerbation Pulmonary hypertension Electrolyte imbalances: hypokalemia, hypomagnesemia Paroxysmal ventricular tachycardia History of smoking tobacco , quit years ago DISCHARGE MEDICATIONS: List of medication was sent to accepting facility DISCHARGE INSTRUCTIONS: Patient was transferred to [facility] for cardiac catheterization. I have been assigned to dictate discharge summary for this account. I was not involved in the patient's management. Sherri Estrella NP Aug 14, 2018 09:08
== END 2018-08-13 12:52 | DRG 280 ==
LOC: EMR 18:03 → EDBEDREQSVC 19:06 → EDBEDREQ 21:16 → 2W 22:38 → 2E 08-12 20:54
DX: I21.4 Non-ST elevation (NSTEMI) myocardial infarction (principal); I50.33 Acute on chronic diastolic (congestive) heart failure; J44.1 Chronic obstructive pulmonary disease with (acute) exacerbation; I47.2 Ventricular tachycardia; I11.0 Hypertensive heart disease with heart failure; Z87.891 Personal history of nicotine dependence; E78.5 Hyperlipidemia, unspecified; I27.20 Pulmonary hypertension, unspecified; E87.6 Hypokalemia; E83.42 Hypomagnesemia; I25.10 Atherosclerotic heart disease of native coronary artery without angina pectoris; I70.0 Atherosclerosis of aorta
CPT/HCPCS: 36415; 71045; 71275; 80048; 80053; 80061; 81003; 82248; 82550; 83735; 83880; 84443; 84484; 85007; 85025; 85610; 85730; 93005; 93306; 94640; 96374; 96375; 96376; 99291; J2405; J8499

== ENCOUNTER 2019-04-28 16:20 | Emergency (ER) | payer MEDICARE, OTHER ==
[~2019-04-28] VITALS: Ht 152.4 cm; Wt 69.9 kg
[2019-04-28] MEDS ORDERED: Tylenol #3 tab (300mg/30mg) PO ONE (17:15)
[2019-04-28 17:30] VITALS: BP 146/65
[2019-04-28] MEDS ORDERED: ZESTRIL10 M1 ORAL (17:36)
[2019-04-28] MEDS ORDERED: FUROSEMIDE40 MG ORAL (17:36)
[2019-04-28] MEDS ORDERED: PLAVIX75 MG ORAL (17:36)
[2019-04-28] MEDS ORDERED: FLUTICASONE PRO16 G1 NASAL (17:36)
[2019-04-28] MEDS ORDERED: VITAMIN C500 M1 ORAL (17:36)
[2019-04-28] MEDS ORDERED: PANTOPRAZOLE SO40 MG ORAL (17:36)
--- NOTE | 2019-04-28 17:58 | Diagnostic Imaging Report ---
EXAM: XR Right Hand Complete, 3 or More Views CLINICAL HISTORY: PAIN TECHNIQUE: Frontal, lateral and oblique views of the right hand. COMPARISON: No relevant prior studies available. FINDINGS: Bones joints: No acute fracture. Osteopenia. Soft tissues: No radiodense foreign body. IMPRESSION: No acute fracture.
--- NOTE | 2019-04-28 17:59 | Diagnostic Imaging Report ---
EXAM: XR Left Forearm, 2 Views CLINICAL HISTORY: PAIN TECHNIQUE: Frontal and lateral views of the left forearm. COMPARISON: No relevant prior studies available. FINDINGS: Bones joints: No acute fracture. Soft tissues: No radiodense foreign body. IMPRESSION: No acute fracture.
--- NOTE | 2019-04-28 19:10 | NUR ---
ED Nurse Note: Rceived report from Mustapha. Pt alert and oriented, verbally responsive. No SOB. VSS.
--- NOTE | 2019-04-28 19:12 | Diagnostic Imaging Report ---
History: PAIN Exam: CT C SPINE Without Contrast Technique more: CTDI is 6.50 mGy and DLP is 175.50 mGy-cm. Technique more: One or more of the following dose reduction techniques were used: automated exposure control, adjustment of the mA and or kV according to patient size, use of iterative reconstruction technique. Comparison: FINDINGS: No fracture or malalignment. Straightening may represent position or spasm. No evidence of prevertebral swelling. Multilevel spondylosis discogenic change mostly consisting of bilateral facet hypertrophic change with associated bilateral areas of foraminal stenosis. IMPRESSION: No fracture or malalignment. Straightening may represent position or spasm. No evidence of prevertebral swelling. Multilevel spondylosis discogenic change mostly consisting of bilateral facet hypertrophic change with associated bilateral areas of foraminal stenosis.
--- NOTE | 2019-04-28 19:23 | Diagnostic Imaging Report ---
History: PAIN Exam: CT CHEST Without Contrast Technique more: CTDI is 16.20 mGy and DLP is 742.90 mGy-cm. Technique more: One or more of the following dose reduction techniques were used: automated exposure control, adjustment of the mA and or kV according to patient size, use of iterative reconstruction technique. Comparison: 08 05 2018 FINDINGS: Ectatic thoracic aorta appears unremarkable on noncontrast imaging. Three-vessel coronary calcification and or stents. No pericardial or pleural effusion. Again note of cholelithiasis. Note of visualized colonic diverticulosis. The central airways are patent without focal consolidation. Bilateral shoulder osteoarthrosis again noted. IMPRESSION: No evidence of acute process on noncontrast imaging. Three-vessel coronary calcification and or stents. Again note of cholelithiasis. Note of visualized colonic diverticulosis.
[2019-04-28] MEDS ORDERED: ACETAMINOPHEN-1 EAC1 ORAL (19:39)
--- NOTE | 2019-04-28 19:40 | NUR ---
HAND-OFF: Report given to VALDO Sheridan.
[2019-04-28 19:52] VITALS: BP 131/72
--- NOTE | 2019-04-28 19:52 | NUR ---
ED Nurse Note: Pt cleared by ERMD for discharge. DC instructions/prescription was given and explained to pt and verbalized understanding of teachings. All medical deviecs such as ID band and IV line removed. Pt is AAO x4, ambulatory and left with all personal belongings. Accompanied by family member.
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
== END 2019-04-28 19:52 | disposition home or self-care (01) ==
LOC: EMR 19:34
DX: M54.2 Cervicalgia (principal); R07.9 Chest pain, unspecified; I10 Essential (primary) hypertension; S60.221A Contusion of right hand, initial encounter; S50.12XA Contusion of left forearm, initial encounter; V43.52XA Car driver injured in collision with other type car in traffic accident, initial encounter; Y92.410 Unspecified street and highway as the place of occurrence of the external cause; Z79.02 Long term (current) use of antithrombotics/antiplatelets; Z79.82 Long term (current) use of aspirin; K80.20 Calculus of gallbladder without cholecystitis without obstruction; M47.9 Spondylosis, unspecified
CPT/HCPCS: 71250; 72125; 99284